=== PATIENT | male | born 1945 | race Caucasian/White ===

== ENCOUNTER 2019-09-24 10:55 | Outpatient (CLI) | payer MEDICARE, OTHER ==
[2019-09-24 11:18] LABS: BASOPHILS # (AUTO) 0.1 10^3/uL (0.0-0.1); EOSINOPHILS # (AUTO) 0.5 10^3/uL (0.0-0.7); EOSINOPHILS % (AUTO) 4.6 %; LYMPHOCYTES # (AUTO) 2.3 10^3/uL (1.5-3.5); MEAN CORPUSCULAR HGB CONC 32.1 g/dL (32.0-36.0); MEAN CORPUSCULAR VOLUME 93.4 fL (80.0-94.0); MEAN PLATELET VOLUME 8.6 fL (7.4-11.4); MONOCYTES # (AUTO) 0.8 10^3/uL (0.0-1.0); MONOCYTES % (AUTO) 8.3 %; NEUTROPHILS # (AUTO) 6.3 10^3/uL (1.5-6.6); NEUTROPHILS % (AUTO) 62.7 %; PLT - PLATELET COUNT 301 10^3/uL (130-450); RED BLOOD COUNT 5.33 10^6/uL (4.70-6.10); RED CELL DISTRIBUTION WIDTH 12.8 % (12.0-15.0)
[2019-09-24 11:29] LABS: ALBUMIN 4.2 g/dL (3.2-5.5); ALBUMIN/GLOBULIN RATIO 1.4 (1.0-2.2); BILIRUBIN,TOTAL 0.9 mg/dL (0.2-1.0); CALCIUM 9.3 mg/dL (8.5-10.3); CREATININE 0.9 mg/dL (0.6-1.2); TOTAL PROTEIN 7.3 g/dL (6.7-8.2)
[2019-09-24 11:39] LABS: HB2 TOTAL 15.9 g/dL; HEMOGLOBIN A1C 0.85 g/dL
== END 2019-09-24 10:56 | disposition home or self-care (01) ==
LOC: LAB 10:55
PROVIDERS: ATTEND Family Medicine
DX: J44.9 Chronic obstructive pulmonary disease, unspecified (principal); E78.5 Hyperlipidemia, unspecified; I10 Essential (primary) hypertension; R73.09 Other abnormal glucose
CPT/HCPCS: 36415; 80053; 83036; 85025

== ENCOUNTER 2020-05-13 08:12 | Outpatient (CLI) | payer MEDICARE, OTHER ==
[2020-05-13 09:41] VITALS: BP 128/86
--- NOTE | 2020-05-13 09:41 | SLEEP CARE CONSULTATION ---
Information from patient questionnaire entered by Yeison Peters. I have reviewed and concur with the information entered by Yeison Peters. This document represents the service I personally performed and the decisions made by me, Ayana Saeed ARNP. History of Present Illness Service Date and Time: 05/13/2020 08 Reason for Visit: New patient, sleep apnea on CPAP therapy Chief Complaint: reports: Snoring Date of Onset: 2004 Usual bedtime: [id number] Time it takes to fall asleep: 5-10 min Snores at night: Yes Observed to quit breathing while asleep: Yes Sleeps alone due to snoring: Yes (sometimes) Number of times waking at night: once Reasons for waking at night: reports: Bathroom. denies: Choking, Snoring, Gasping for air Toss, Turn, or Twitch while sleeping: No Recalls having dreams: No Usually gets out of bed at: 0500 Feels refreshed in the morning: Yes Morning headache: No Sleepy or fatigued during the day: Yes Ever fallen asleep while driving: No Takes day naps: Yes Dreams during day naps: No Prior sleep studies: Yes Year and Where: 2005 in [place] (Dr. Finney) Additional HPI information: LIBRA VILLEDA presents with a history of obstructive sleep apnea-hypopnea syndrome and came in today with his spouse for establishment of care. He was last set up with a CPAP machine in 2005 and he still has the same machine. I was unable to get any compliance information off of his machine. He states his machine is set at 11 cm H2O. He states recently the pressure has felt like it is too low. His also states that he now is snoring while using the machine. She states it starts after he gets up to the bathroom (most often about 3-4 AM, sometimes about midnight) and it is a constant sounding snore. She states it is not like an intake and exhale of breathing, just a single tone snore sound. He makes sure his mask is on well with a good seal and does not know where the sound is coming from, he denies mask leaking. Sometimes it is so loud his has to leave the room to be able to sleep. He has a history of emphysema, hypertension and is borderline diabetic. He is a daily smoker. Patient did not have a copy of his previous sleep study to verify his diagnosis. - Parasomnia Symptoms Ever been unable to move upon waking from sleep: No Walks in sleep: No Talks in sleep: No Ever acted out dreams in sleep: No Ever felt weak in the knees when startled or emotional: No Bothered by creepy, crawly, restless sensations in legs: No Problems with memory or concentration: No CPAP Compliance Data Compliance data discussion: He is getting supplies from [facility] without problems. He is using a nasal pillows mask. He last changed the cushion 2 weeks ago. He has a backup mask if needed. I was able to see that his pressure is set on 11 cm H2O when examining the machine. Subjective Patient concerns: denies: aerophagia, mask discomfort, air blowing in eyes, mask leak noise (occasional noise that reduces with adjusting mask), condensation in mask/hose (occasional condensation in nasal pillows), nasal congestion, dry mouth, nose, throat, epistaxis, other Observed to snore while using device: Yes (usually about 3-4 AM when coming back to bed) Current pressure setting perceived as: too low On therapy, patient: reports: sleeping better, awakening more refreshed, being more awake and alert during the day, more rested overall. denies: drowsiness while driving Initial Powell Sleepiness Scale score: 10 (in 2019) Past Medical History Past Medical History: reports: Hypertension, Arthritis, Coronary Heart Disease (He has had 2 silent heart attacks ), Emphysema. denies: Claustrophobia, Congestive Heart Failure, Diabetes (borderline diabetes), Arrythmia, Hypothyroidism, Anemia, Anxiety, Impotence, Depression, Mood disorder, GERD, Attention deficit Social History The patient's occupation is retired. Patient is and lives in [place]. Have you smoked in the past 12 months: Yes Cigarettes per day (20/pack): 20 Years of smokin Quit date: N/A Smoking Pack Years: 60.0 Alcohol use: No Caffeine use: Yes Caffeine amount and frequency: 3-4 cups Family History Family history of sleep disordered breathing: Yes (Daughter, brother) Family Hx Sleep Apnea: Sibling: Snoring, Sleep apnea - Treated Allergies and Home Medications Drug allergies reviewed: Yes (NKDA) Home medication list reviewed: Yes Allergy and home medication list: Metformin HCL Spironolactone Losartan atorvastatin Niacin Roel Aspirin cetirizine mucinex max strength fluconazole Review of Systems Weight gain over past 5 years: 8 Weight loss over past 5 years: 5 Cardiovascular: reports: high blood pressure. denies: palpitations, chest pain, irregular heart rate or pulse, leg or foot swelling Respiratory: reports: shortness of breath, wheeze, sputum production, chronic cough Gastrointestinal: reports: diarrhea (occasional). denies: heartburn, difficulty swallowing Urinary: reports: frequency. denies: impotence Neurological: reports: gait or balance problems. denies: headaches, seizure, head trauma, speech dysfunction, fainting or unconsciousness Psychiatric: denies: Attention Deficit Hyperactivity, anxiety, depression, mood disorder, claustrophobia Ear/Nose/Throat: reports: nasal congestion, sinus problems. denies: nose bleeds, dry mouth/throat, injury to nose, tonsillectomy, wisdom teeth removed Endocrine: reports: sluggishness, too hot or cold (sometimes). denies: thyroid disease Musculoskeletal: reports: joint pain, back pain Immunologic: reports: allergies to food or environment (seasonal allergies) Physical Exam Blood Pressure: 128/86 Cuff size: long Heart Rate: 93 O2 Saturation: 92 Height: 5 ft 9 in Weight: 177 lb Body Mass Index: 26.1 BMI Classification: Overweight Neck circumference: 16.65 (inches) HEENT: No craniofacial malformation Nostrils: partially obstructed Turbinates: normal Septum: midline Mouth and throat: narrow oropharynx Soft palate: normal Hard palate: arched Uvula: normal Uvula visualization: 25% Mallampati Class III Tongue: normal in size Tonsils: 1+ Chin and jaw: normal size and position Neck: normal w/o lymphadenopathy or thyromegaly Heart: regular rate and rhythm Lungs: clear bilaterally Impression and Plan 1. Obstructive Sleep Apnea-Hypopnea Syndrome, unknown, with unknown treatment compliance and unknown apnea control. On CPAP therapy, patient feels there is improved sleep quality and feels more rested overall. We are attempting to obtain a copy of his previous study to verify his diagnosis and severity. If unable to obtain may need to repeat a sleep study for verification. We will try to get information from his machine, but may have to wait until able to replace machine to obtain compliance information. The patients CPAP is over 5 years old and of reasonable use. Thus, the CPAP will be updated once able to verify his diagnosis and severity. Compliance guidelines for new device and follow up discussed. Patient feels his pressure is too low and he is apparently snoring while using the machine. He states that his CPAP pressure has been 11 cm H2O since 2005, no adjustments have been made. Patient left his machine with us and I will see if we can increase his CPAP pressure to 12 cm H2O on his old machine and he will pick it back up later today. If unable to adjust pressure, we will just have to wait until able to update his machine to do this. Patient's apnea severity and rationale for treatment to reduce apnea, improve sleep quality and reduce cardiovascular and cerebrovascular events was reviewed. I also reviewed the benefit of consistent device use of CPAP for hypertension, cardiac disease, and borderline diabetes. Change CPAP pressure at 12 cm H2O. Notify me if snoring with the mask or feeling that the pressure is too much or too little. Attempt to lose weight. A repeat polysomnography study will be ordered if unable to obtain copy of previous study. We will plan on replacing old machine if able to obtain verification of diagnosis and severity Return for follow-up in 1-2 months, or sooner if concerns arise. Visit Type: In Office Time Spent with Patient (minutes): 40 Provider Statement: I spent 100% of the Face to Face Visit with the patient with greater than 50% spent counseling the patient and coordination of care.
== END 2020-05-13 08:13 | disposition home or self-care (01) ==
LOC: SC 08:12
PROVIDERS: ATTEND Nurse Practitioner Family
DX: G47.33 Obstructive sleep apnea (adult) (pediatric) (principal); E66.3 Overweight; Z68.26 Body mass index [BMI] 26.0-26.9, adult
CPT/HCPCS: 99204; G0463; 99212

== ENCOUNTER 2020-06-24 08:00 | Outpatient (CLI) | payer MEDICARE, OTHER ==
[2020-06-24 11:36] LABS: HEMOGLOBIN A1c% 6.8 % (4.27-6.07)
[2020-06-24 11:37] LABS: ALBUMIN/GLOBULIN RATIO 1.3 (1.0-2.2); ALKALINE PHOSPHATASE 61 IU/L (42-121); ALT ALANINE AMINOTRANSFERASE 16 IU/L (10-60); AST ASPARTATE AMINOTRANSFERASE 23 IU/L (10-42); BILIRUBIN,TOTAL 0.9 mg/dL (0.2-1.0); BUN - BLOOD UREA NITROGEN 15 mg/dL (6-20); CALCIUM 9.6 mg/dL (8.5-10.3); CARBON DIOXIDE - CO2 28 mmol/L (21-32); CHLORIDE 91 mmol/L (101-111); CHOL/HDL RATIO 2.1 (<5.0); CHOLESTEROL 98 mg/dL; CREATININE 0.9 mg/dL (0.6-1.2); GLUCOSE 132 mg/dL (70-100); HDL CHOLESTEROL 47 mg/dL; LDL CHOLESTEROL,CALCULATED 37 mg/dL; LDL/HDL RATIO 0.8 (<3.6); SODIUM 132 mmol/L (135-145); TOTAL PROTEIN 7.2 g/dL (6.7-8.2); VLDL CHOLESTEROL 14 mg/dL
[2020-06-24 11:44] LABS: BASOPHILS # (AUTO) 0.1 10^3/uL (0.0-0.1); BASOPHILS % (AUTO) 1.1 %; EOSINOPHILS # (AUTO) 0.4 10^3/uL (0.0-0.7); EOSINOPHILS % (AUTO) 4.5 %; HGB - HEMOGLOBIN 16.3 g/dL (14.0-18.0); LYMPHOCYTES # (AUTO) 1.9 10^3/uL (1.5-3.5); LYMPHOCYTES % (AUTO) 21.7 %; MEAN CORPUSCULAR HEMOGLOBIN 31.7 pg (27.0-31.0); MEAN CORPUSCULAR HGB CONC 32.6 g/dL (32.0-36.0); MEAN CORPUSCULAR VOLUME 97.3 fL (80.0-94.0); MEAN PLATELET VOLUME 9.1 fL (7.4-11.4); MONOCYTES # (AUTO) 0.9 10^3/uL (0.0-1.0); MONOCYTES % (AUTO) 10.5 %; NEUTROPHILS # (AUTO) 5.5 10^3/uL (1.5-6.6); NEUTROPHILS % (AUTO) 61.7 %; PLT - PLATELET COUNT 308 10^3/uL (130-450); RED BLOOD COUNT 5.14 10^6/uL (4.70-6.10); RED CELL DISTRIBUTION WIDTH 12.8 % (12.0-15.0); WHITE BLOOD COUNT 8.9 x10^3/uL (4.8-10.8)
== END 2020-06-24 23:59 | disposition home or self-care (01) ==
LOC: LAB.WCP 08:00
PROVIDERS: ATTEND Family Medicine
DX: J44.9 Chronic obstructive pulmonary disease, unspecified (principal); R73.09 Other abnormal glucose; E78.5 Hyperlipidemia, unspecified; I10 Essential (primary) hypertension
CPT/HCPCS: 36415; 80053; 80061; 83036; 83721; 84443; 85025

== ENCOUNTER 2020-07-11 08:08 | Outpatient (CLI) | payer MEDICARE, OTHER ==
--- NOTE | 2020-07-11 08:26 | SLEEP CARE CONSULTATION ---
Information from patient questionnaire entered by Paula Bello. I have reviewed and concur with the information entered by Paula Bello. This document represents the service I personally performed and the decisions made by me, Ayana Saeed ARNP. History of Present Illness Service Date and Time: 07/11/2020 0808 Previous diagnosis: Severe, Obstructive Sleep Apnea-Hypopnea Syndrome AHI: 49 (in 2005) Reason for follow up: other (2 month with pressure change) Equipment type: CPAP Equipment obtained from: [facility] (difficulty getting filters for new machine) Mask style: Nasal pillows Backup mask available: Yes (other mask) Last cushion change: 2 weeks ago Prior sleep studies: Yes Year and Where: 2005 - in [facility] additional information: LIBRA VILLEDA was diagnosed to have severe, AHI 49, obstructive sleep apnea-hypopnea syndrome and returned today for CPAP therapy two month pressure change follow-up. CPAP Compliance Data - Data Reviewed with Patient Average duration of nightly device use: 7 hr 11 min Compliance rate %: 92 (60 days) Current pressure setting (cmH2O): 12 Humidity settin Average residual AHI: 0.3 Subjective Missed days of use due to: reports: other (change to new machine) Patient concerns: denies: aerophagia, mask discomfort, air blowing in eyes, mask leak noise, condensation in mask/hose, nasal congestion, dry mouth, nose, throat, epistaxis, other Observed to snore while using device: No Current pressure setting perceived as: comfortable On therapy, patient: reports: sleeping better, awakening more refreshed, being more awake and alert during the day, more rested overall. denies: drowsiness while driving Initial Rhodelia Sleepiness Scale score: 10 (in 2019) Current Rhodelia Sleepiness Scale score: 14 Allergies and Home Medications Drug allergies reviewed: Yes (NKDA) Home medication list reviewed: Yes (no new medications) Review of Systems Review of systems same as previous: Yes (no changes) Physical Exam Heart Rate: 85 O2 Saturation: 97 Height: 5 ft 10 in Weight: 170 lb Body Mass Index: 24.3 BMI Classification: Healthy weight Impression and Plan 1. Obstructive Sleep Apnea-Hypopnea Syndrome, severe, with good treatment compliance and great apnea control. On CPAP therapy, the patient has better sleep quality and is more rested overall. He is really liking his new machine and has no complaints. Patient's apnea severity and rationale for treatment to reduce apnea, improve sleep quality and reduce cardiovascular and cerebrovascular events was reviewed. I also reviewed the benefit of consistent device use of CPAP for hypertension and cardiac disease. * Continue auto CPAP pressure at 12 cmH2O * Notify me if snoring with mask or feeling that the pressure is too much or too little * Call this office if any problems using CPAP * Return for follow up in 1 year, or sooner if concerns arise Counseling Topics: Spare mask Visit Type: In Office Time Spent with Patient (minutes): 16 Provider Statement: I spent 100% of the Face to Face Visit with the patient with greater than 50% spent counseling the patient and coordination of care.
== END 2020-07-11 08:09 | disposition home or self-care (01) ==
LOC: SC 08:08
PROVIDERS: ATTEND Nurse Practitioner Family
DX: G47.33 Obstructive sleep apnea (adult) (pediatric) (principal)
CPT/HCPCS: 99213; G0463; 99212

== ENCOUNTER 2020-12-27 08:00 | Outpatient (CLI) | payer MEDICARE, OTHER ==
[2020-12-27 12:46] LABS: ESTIMATED AVERAGE GLUCOSE 143 mg/dL (70-100); HEMOGLOBIN A1c% 6.6 % (4.27-6.07)
[2020-12-27 13:10] LABS: CREATININE,URINE 94.8 mg/dL; MICROALBUM/CREATININE RATIO,UR 2.1 ug/mg (<30.0); MICROALBUMIN,URINE 0.2 mg/dL (0-300.0)
[2020-12-27 13:14] LABS: CALCIUM 9.4 mg/dL (8.5-10.3); CREATININE 0.9 mg/dL (0.6-1.2); POTASSIUM 4.6 mmol/L (3.5-5.0)
== END 2020-12-27 23:59 | disposition home or self-care (01) ==
LOC: LAB.WCP 08:00
PROVIDERS: ATTEND Family Medicine
DX: G47.39 Other sleep apnea (principal); J44.9 Chronic obstructive pulmonary disease, unspecified; R73.03 Prediabetes; I10 Essential (primary) hypertension; E87.5 Hyperkalemia
CPT/HCPCS: 36415; 80048; 82043; 82570; 83036

== ENCOUNTER 2021-06-26 08:00 | Outpatient (CLI) | payer MEDICARE, OTHER ==
[2021-06-26 11:47] LABS: ESTIMATED AVERAGE GLUCOSE 151 mg/dL (70-100); HEMOGLOBIN A1c% 6.9 % (4.27-6.07)
[2021-06-26 12:11] LABS: ALBUMIN 4.3 g/dL (3.2-5.5); ALBUMIN/GLOBULIN RATIO 1.5 (1.0-2.2); ALKALINE PHOSPHATASE 64 IU/L (42-121); ALT ALANINE AMINOTRANSFERASE 15 IU/L (10-60); AST ASPARTATE AMINOTRANSFERASE 19 IU/L (10-42); BILIRUBIN,TOTAL 0.9 mg/dL (0.2-1.0); BUN - BLOOD UREA NITROGEN 20 mg/dL (6-20); CALCIUM 9.6 mg/dL (8.5-10.3); CARBON DIOXIDE - CO2 28 mmol/L (21-32); CHLORIDE 94 mmol/L (101-111); CHOL/HDL RATIO 2.2 (<5.0); CHOLESTEROL 104 mg/dL; CREATININE 0.8 mg/dL (0.6-1.2); GFR - MDRD 94 (>89); GLUCOSE 119 mg/dL (70-100); HDL CHOLESTEROL 48 mg/dL; LDL CHOLESTEROL,CALCULATED 43 mg/dL; LDL/HDL RATIO 0.9 (<3.6); POTASSIUM 5.2 mmol/L (3.5-5.0); SODIUM 132 mmol/L (135-145); TOTAL PROTEIN 7.2 g/dL (6.7-8.2); TRIGLYCERIDES 65 mg/dL; VLDL CHOLESTEROL 13 mg/dL
[2021-06-26 13:00] LABS: CREATININE,URINE 48.9 mg/dL
[2021-06-26 13:01] LABS: MICROALBUMIN,URINE < 0.2 mg/dL (0-300.0)
== END 2021-06-26 23:59 | disposition home or self-care (01) ==
LOC: LAB.WCP 08:00
PROVIDERS: ATTEND Internal Medicine
DX: E78.5 Hyperlipidemia, unspecified (principal); R73.09 Other abnormal glucose
CPT/HCPCS: 36415; 80053; 80061; 82043; 82570; 83036; 83721

== ENCOUNTER 2021-12-21 07:08 | Outpatient (CLI) | payer MEDICARE, OTHER ==
[2021-12-21 13:13] LABS: BASOPHILS # (AUTO) 0.1 10^3/uL (0.0-0.1); BASOPHILS % (AUTO) 1.2 %; EOSINOPHILS # (AUTO) 0.4 10^3/uL (0.0-0.7); EOSINOPHILS % (AUTO) 4.4 %; HCT - HEMATOCRIT 51.2 % (42.0-52.0); HGB - HEMOGLOBIN 16.8 g/dL (14.0-18.0); LYMPHOCYTES # (AUTO) 1.8 10^3/uL (1.5-3.5); LYMPHOCYTES % (AUTO) 19.7 %; MEAN CORPUSCULAR HEMOGLOBIN 31.1 pg (27.0-31.0); MEAN CORPUSCULAR HGB CONC 32.8 g/dL (32.0-36.0); MEAN CORPUSCULAR VOLUME 94.6 fL (80.0-94.0); MEAN PLATELET VOLUME 9.7 fL (7.4-11.4); MONOCYTES # (AUTO) 0.9 10^3/uL (0.0-1.0); MONOCYTES % (AUTO) 9.8 %; NEUTROPHILS % (AUTO) 64.5 %; PLT - PLATELET COUNT 298 10^3/uL (130-450); RED BLOOD COUNT 5.41 10^6/uL (4.70-6.10); RED CELL DISTRIBUTION WIDTH 13.3 % (12.0-15.0); WHITE BLOOD COUNT 9.3 x10^3/uL (4.8-10.8)
[2021-12-21 13:49] LABS: CALCIUM 9.5 mg/dL (8.5-10.3); POTASSIUM 5.1 mmol/L (3.5-5.0)
[2021-12-21 14:48] LABS: ESTIMATED AVERAGE GLUCOSE 154 mg/dL (70-100)
== END 2021-12-21 07:09 | disposition home or self-care (01) ==
LOC: LAB.N 07:08
PROVIDERS: ATTEND Family Medicine
DX: E11.9 Type 2 diabetes mellitus without complications (principal); E87.6 Hypokalemia; J42 Unspecified chronic bronchitis; I10 Essential (primary) hypertension
CPT/HCPCS: 36415; 80048; 83036; 85025

== ENCOUNTER 2022-06-21 07:57 | Outpatient (CLI) | payer MEDICARE, OTHER ==
[2022-06-21 12:35] LABS: BASOPHILS # (AUTO) 0.1 10^3/uL (0.0-0.1); BASOPHILS % (AUTO) 0.9 %; EOSINOPHILS # (AUTO) 0.3 10^3/uL (0.0-0.7); EOSINOPHILS % (AUTO) 3.5 %; HCT - HEMATOCRIT 50.6 % (42.0-52.0); HGB - HEMOGLOBIN 16.4 g/dL (14.0-18.0); LYMPHOCYTES # (AUTO) 1.7 10^3/uL (1.5-3.5); LYMPHOCYTES % (AUTO) 17.5 %; MEAN CORPUSCULAR HEMOGLOBIN 30.9 pg (27.0-31.0); MEAN CORPUSCULAR HGB CONC 32.4 g/dL (32.0-36.0); MEAN CORPUSCULAR VOLUME 95.3 fL (80.0-94.0); MEAN PLATELET VOLUME 9.2 fL (7.4-11.4); MONOCYTES # (AUTO) 0.9 10^3/uL (0.0-1.0); MONOCYTES % (AUTO) 9.4 %; NEUTROPHILS # (AUTO) 6.6 10^3/uL (1.5-6.6); NEUTROPHILS % (AUTO) 68.1 %; PLT - PLATELET COUNT 326 10^3/uL (130-450); RED BLOOD COUNT 5.31 10^6/uL (4.70-6.10); RED CELL DISTRIBUTION WIDTH 12.9 % (12.0-15.0); WHITE BLOOD COUNT 9.8 x10^3/uL (4.8-10.8)
[2022-06-21 13:01] LABS: ESTIMATED AVERAGE GLUCOSE 160 mg/dL (70-100); HEMOGLOBIN A1c% 7.2 % (4.27-6.07)
[2022-06-21 13:15] LABS: THYROID STIMULATING HORMONE 1.59 uIU/mL (0.34-5.60)
[2022-06-21 13:18] LABS: ALBUMIN 4.1 g/dL (3.2-5.5); ALBUMIN/GLOBULIN RATIO 1.4 (1.0-2.2); ALKALINE PHOSPHATASE 64 IU/L (42-121); ALT ALANINE AMINOTRANSFERASE 21 IU/L (10-60); AST ASPARTATE AMINOTRANSFERASE 24 IU/L (10-42); BILIRUBIN,TOTAL 0.6 mg/dL (0.2-1.0); BUN - BLOOD UREA NITROGEN 17 mg/dL (6-20); CALCIUM 9.5 mg/dL (8.5-10.3); CARBON DIOXIDE - CO2 30 mmol/L (21-32); CHLORIDE 93 mmol/L (101-111); CHOLESTEROL 93 mg/dL; CREATININE 0.9 mg/dL (0.6-1.2); GFR - MDRD 82 (>89); GLUCOSE 136 mg/dL (70-100); HDL CHOLESTEROL 46 mg/dL; LDL CHOLESTEROL,CALCULATED 38 mg/dL; LDL/HDL RATIO 0.8 (<3.6); POTASSIUM 4.8 mmol/L (3.5-5.0); SODIUM 130 mmol/L (135-145); TOTAL PROTEIN 7.1 g/dL (6.7-8.2); TRIGLYCERIDES 45 mg/dL; VLDL CHOLESTEROL 9 mg/dL
== END 2022-06-21 07:58 | disposition home or self-care (01) ==
LOC: LAB.N 07:57
PROVIDERS: ATTEND Family Medicine
DX: I10 Essential (primary) hypertension (principal); E11.9 Type 2 diabetes mellitus without complications; E87.6 Hypokalemia; J44.9 Chronic obstructive pulmonary disease, unspecified
CPT/HCPCS: 36415; 80053; 80061; 83036; 83721; 84443; 85025

== ENCOUNTER 2022-12-18 07:32 | Outpatient (CLI) | payer MEDICARE, OTHER ==
[2022-12-18 11:58] LABS: BASOPHILS # (AUTO) 0.1 10^3/uL (0.0-0.1); BASOPHILS % (AUTO) 1.2 %; EOSINOPHILS # (AUTO) 0.4 10^3/uL (0.0-0.7); EOSINOPHILS % (AUTO) 4.3 %; HCT - HEMATOCRIT 51.8 % (42.0-52.0); HGB - HEMOGLOBIN 17.1 g/dL (14.0-18.0); LYMPHOCYTES # (AUTO) 1.7 10^3/uL (1.5-3.5); LYMPHOCYTES % (AUTO) 18.2 %; MEAN CORPUSCULAR VOLUME 93.8 fL (80.0-94.0); MEAN PLATELET VOLUME 9.2 fL (7.4-11.4); MONOCYTES # (AUTO) 0.9 10^3/uL (0.0-1.0); MONOCYTES % (AUTO) 9.8 %; NEUTROPHILS # (AUTO) 6.2 10^3/uL (1.5-6.6); PLT - PLATELET COUNT 311 10^3/uL (130-450); RED BLOOD COUNT 5.52 10^6/uL (4.70-6.10); RED CELL DISTRIBUTION WIDTH 12.8 % (12.0-15.0); WHITE BLOOD COUNT 9.4 x10^3/uL (4.8-10.8)
[2022-12-18 12:25] LABS: ESTIMATED AVERAGE GLUCOSE 151 mg/dL (70-100); HEMOGLOBIN A1c% 6.9 % (4.27-6.07)
[2022-12-18 12:26] LABS: THYROID STIMULATING HORMONE 2.22 uIU/mL (0.34-5.60)
[2022-12-18 12:30] LABS: ALBUMIN/GLOBULIN RATIO 1.2 (1.0-2.2); BILIRUBIN,TOTAL 0.7 mg/dL (0.2-1.0); CALCIUM 9.5 mg/dL (8.5-10.3); CREATININE 0.9 mg/dL (0.6-1.2); POTASSIUM 5.1 mmol/L (3.5-5.0); TOTAL PROTEIN 7.4 g/dL (6.7-8.2)
== END 2022-12-18 07:33 | disposition home or self-care (01) ==
LOC: LAB.N 07:32
PROVIDERS: ATTEND Family Medicine
DX: E11.9 Type 2 diabetes mellitus without complications (principal); F17.200 Nicotine dependence, unspecified, uncomplicated; G47.30 Sleep apnea, unspecified; J44.9 Chronic obstructive pulmonary disease, unspecified; I10 Essential (primary) hypertension
CPT/HCPCS: 36415; 80053; 83036; 84443; 85025

== ENCOUNTER 2023-01-10 10:44 | Outpatient (CLI) | payer MEDICARE, OTHER ==
--- NOTE | 2023-01-10 14:38 | CT Report ---
PROCEDURE: Low Dose Lung Cancer Screen INDICATIONS: NICOTINE DEPENDENCE TECHNIQUE: Noncontrast low-dose axial images were acquired from the pulmonary apices to the posterior costophren ic angles. Multiplanar MIP reformats were then reconstructed. For radiation dose reduction, the follo wing was used: automated exposure control, adjustment of mA and/or kV according to patient size. COMPARISON: None. FINDINGS: Image quality: Excellent. Prior cancer history: Unknown Lungs and pleura: No pleural effusions. No pneumothorax. No suspicious pulmonary nodules which requi re follow up. There is moderate upper lobe predominant pulmonary emphysema with mild subpleural retic ular opacities involving all lobes of the bilateral hemithoraces. Findings are compatible with early pleural scarring. No fibrosis identified . No septal thickening or nodularity. Mediastinum: Heart size is normal. No pericardial effusions. No mediastinal adenopathy by size criter ia. No large vessel abnormality. Moderate atherosclerotic calcifications of the coronary arteries and thoracic aorta. Chest wall and lower neck: Thyroid is unremarkable. No axillary or supraclavicular adenopathy by size . Bones: No aggressive osseous abnormality. Multilevel spondylosis. No acute compression fracture. Upper Abdomen: Visualized upper abdominal solid and hollow organs appear unremarkable. Aneurysmal dil atation of the proximal abdominal aorta measuring 5.4 cm in diameter. IMPRESSION: Chest without acute cardiopulmonary abnormalities. No suspicious pulmonary nodules. Moderate upper lobe predominant pulmonary emphysema. Lung RAD: 1 - Negative. Recommendation: Continue annual screening in 12 Months with LDCT Non-Lung Significant Findings: Aortic Aneurysm. Visualized portions of the proximal abdominal aorta m easures up to 5.4 cm in size. There is also ectasia of the ascending thoracic aorta measuring approxi mately 4.3 cm in diameter. Recommend clinical and imaging surveillance. Moderate atherosclerotic vascular calcifications. Reviewed by: Sea Ford MD on 01/10/2023 2:36 PM PDT Approved by: Sea Ford MD on 01/10/2023 2:36 PM PDT Station ID: [id number]
== END 2023-01-10 10:45 | disposition home or self-care (01) ==
LOC: DI 10:44
PROVIDERS: ATTEND Family Medicine
DX: Z12.2 Encounter for screening for malignant neoplasm of respiratory organs (principal); J43.9 Emphysema, unspecified; F17.210 Nicotine dependence, cigarettes, uncomplicated

== ENCOUNTER 2023-01-29 07:43 | Outpatient (CLI) | payer MEDICARE, OTHER ==
--- NOTE | 2023-01-29 17:07 | Ultrasound Report ---
PROCEDURE: Retroperitoneal Limited INDICATIONS: AAA TECHNIQUE: Real-time scanning was performed of the retroperitoneal organs, with image documentation. COMPARISON: None. FINDINGS: The proximal mid and distal aorta measure 3.0 x 2.9 cm, 2.0 x 2.5 cm, and 5.8 x 5.6 cm within the pro ximal, mid and distal portions respectively. The right common iliac artery measures 1.2 x 1.3 cm. The left common iliac artery measures 1.3 x 1.0 cm. IMPRESSION: Distal aortic aneurysmal dilation. No priors are available for comparison. Mildly prominent proximal aorta. No priors are available for comparison. Reviewed by: Tonia Herrera MD on 01/29/2023 5:06 PM PDT Approved by: Tonia Herrera MD on 01/29/2023 5:06 PM PDT Station ID: [id number]
== END 2023-01-29 07:44 | disposition home or self-care (01) ==
LOC: DI 07:43
PROVIDERS: ATTEND Family Medicine
DX: I71.40 Abdominal aortic aneurysm, without rupture, unspecified (principal)

== ENCOUNTER 2023-07-03 14:58 | Outpatient (CLI) | payer MEDICARE, OTHER ==
--- NOTE | 2023-07-03 16:38 | Ultrasound Report ---
PROCEDURE: Retroperitoneal INDICATIONS: RENAL MASS TECHNIQUE: Real-time scanning was performed of the retroperitoneal organs, with image documentation. COMPARISON: CT 01/10/2023. FINDINGS: Kidneys: Kidneys are normal in size. Right kidney measures 11.9 cm long; left kidney measures 12.3 cm long. Right renal cortical thickness is 1.3 cm; left renal cortical thickness is 1.8 cm. Right si mple cysts. No solid masses, hydronephrosis, or nephrolithiasis. Bladder: Pre-void bladder volume is 228 mL. Post-void residual is 8 mL. Pre-void images demonstrat e no intraluminal masses or stones. On pre-void images, bilateral ureteral jets are noted with color Doppler interrogation. (Of note, ureteral jets may not be detectable in up to 25% of cases due to i nsufficient differences in specific gravity between ureteral and bladder urine). Miscellaneous: No free abdominal fluid. IMPRESSION: Right renal simple cysts. No solid renal masses visualized. Reviewed by: Triny Hubbard MD on 07/03/2023 4:37 PM PST Approved by: Triny Hubbard MD on 07/03/2023 4:37 PM PST Station ID: [id number]
== END 2023-07-03 14:59 | disposition home or self-care (01) ==
LOC: DI 14:58
PROVIDERS: ATTEND Family Medicine
DX: N28.1 Cyst of kidney, acquired (principal)

== ENCOUNTER 2023-10-31 08:30 | Outpatient (CLI) | payer MEDICARE, OTHER ==
[2023-10-31 11:57] LABS: BASOPHILS # (AUTO) 0.1 10^3/uL (0.0-0.1); EOSINOPHILS # (AUTO) 0.4 10^3/uL (0.0-0.7); EOSINOPHILS % (AUTO) 3.6 %; HCT - HEMATOCRIT 48.4 % (42.0-52.0); LYMPHOCYTES # (AUTO) 1.4 10^3/uL (1.5-3.5); LYMPHOCYTES % (AUTO) 14.2 %; MEAN CORPUSCULAR HEMOGLOBIN 30.6 pg (27.0-31.0); MEAN CORPUSCULAR HGB CONC 33.1 g/dL (32.0-36.0); MEAN CORPUSCULAR VOLUME 92.5 fL (80.0-94.0); MEAN PLATELET VOLUME 9.1 fL (7.4-11.4); MONOCYTES # (AUTO) 0.9 10^3/uL (0.0-1.0); MONOCYTES % (AUTO) 8.5 %; NEUTROPHILS # (AUTO) 7.2 10^3/uL (1.5-6.6); NEUTROPHILS % (AUTO) 72.4 %; PLT - PLATELET COUNT 292 10^3/uL (130-450); RED BLOOD COUNT 5.23 10^6/uL (4.70-6.10); RED CELL DISTRIBUTION WIDTH 13.1 % (12.0-15.0)
[2023-10-31 12:39] LABS: ALBUMIN 4.5 g/dL (3.2-5.5); ALBUMIN/GLOBULIN RATIO 1.9 (1.0-2.2); BILIRUBIN,TOTAL 0.7 mg/dL (0.2-1.0); CALCIUM 9.8 mg/dL (8.5-10.3); CREATININE 0.8 mg/dL (0.6-1.3); POTASSIUM 4.6 mmol/L (3.5-4.5); TOTAL PROTEIN 6.9 g/dL (6.4-8.9)
== END 2023-10-31 08:45 | disposition home or self-care (01) ==
LOC: LAB.N 08:30
PROVIDERS: ATTEND Specialist
DX: L30.9 Dermatitis, unspecified (principal)
CPT/HCPCS: 36415; 80053; 85025

== ENCOUNTER 2023-12-19 07:26 | Outpatient (CLI) | payer MEDICARE, OTHER ==
[2023-12-19 12:09] LABS: ESTIMATED AVERAGE GLUCOSE 157 mg/dL (70-100); HEMOGLOBIN A1c% 7.1 % (4.27-6.07)
[2023-12-19 12:36] LABS: BASOPHILS # (AUTO) 0.1 10^3/uL (0.0-0.1); BASOPHILS % (AUTO) 1.2 %; EOSINOPHILS # (AUTO) 0.6 10^3/uL (0.0-0.7); EOSINOPHILS % (AUTO) 6.3 %; HCT - HEMATOCRIT 50.6 % (42.0-52.0); HGB - HEMOGLOBIN 16.1 g/dL (14.0-18.0); LYMPHOCYTES # (AUTO) 1.6 10^3/uL (1.5-3.5); LYMPHOCYTES % (AUTO) 17.2 %; MEAN CORPUSCULAR HEMOGLOBIN 30.3 pg (27.0-31.0); MEAN CORPUSCULAR HGB CONC 31.8 g/dL (32.0-36.0); MEAN CORPUSCULAR VOLUME 95.3 fL (80.0-94.0); MEAN PLATELET VOLUME 9.4 fL (7.4-11.4); MONOCYTES # (AUTO) 0.9 10^3/uL (0.0-1.0); MONOCYTES % (AUTO) 9.6 %; NEUTROPHILS % (AUTO) 65.4 %; PLT - PLATELET COUNT 288 10^3/uL (130-450); RED BLOOD COUNT 5.31 10^6/uL (4.70-6.10); RED CELL DISTRIBUTION WIDTH 13.4 % (12.0-15.0); WHITE BLOOD COUNT 9.2 x10^3/uL (4.8-10.8)
[2023-12-19 12:47] LABS: ALBUMIN 4.3 g/dL (3.2-5.5); ALBUMIN/GLOBULIN RATIO 1.6 (1.0-2.2); ALKALINE PHOSPHATASE 60 IU/L (42-121); ALT ALANINE AMINOTRANSFERASE 19 IU/L (10-60); AST ASPARTATE AMINOTRANSFERASE 22 IU/L (10-42); BILIRUBIN,TOTAL 0.5 mg/dL (0.2-1.0); BUN - BLOOD UREA NITROGEN 17 mg/dL (6-20); CARBON DIOXIDE - CO2 31 mmol/L (21-32); CHLORIDE 94 mmol/L (101-111); CHOL/HDL RATIO 1.7 (<5.0); CHOLESTEROL 93 mg/dL; CREATININE 0.9 mg/dL (0.6-1.3); GFR - MDRD 81 (>89); GLUCOSE 141 mg/dL (74-104); HDL CHOLESTEROL 55 mg/dL; LDL CHOLESTEROL,CALCULATED 26 mg/dL; LDL/HDL RATIO 0.5 (<3.6); POTASSIUM 4.9 mmol/L (3.5-4.5); SODIUM 130 mmol/L (135-145); TRIGLYCERIDES 60 mg/dL (48-352); VLDL CHOLESTEROL 12 mg/dL
[2023-12-19 13:05] LABS: THYROID STIMULATING HORMONE 1.83 uIU/mL (0.34-5.60)
== END 2023-12-19 07:27 | disposition home or self-care (01) ==
LOC: LAB.N 07:26
PROVIDERS: ATTEND Family Medicine
DX: I10 Essential (primary) hypertension (principal); N28.89 Other specified disorders of kidney and ureter; I71.9 Aortic aneurysm of unspecified site, without rupture; E87.1 Hypo-osmolality and hyponatremia; E78.5 Hyperlipidemia, unspecified; J44.9 Chronic obstructive pulmonary disease, unspecified; R73.03 Prediabetes; F17.200 Nicotine dependence, unspecified, uncomplicated; Z71.6 Tobacco abuse counseling; E87.5 Hyperkalemia
CPT/HCPCS: 36415; 80053; 80061; 83036; 83721; 84443; 85025

== ENCOUNTER 2024-03-16 14:56 | Inpatient (IN) | payer MEDICARE, OTHER ==
--- NOTE | 2024-03-16 15:43 | ED Physician Documentation ---
History of Present Illness - Stated complaint Stated Complaint: BILAT LEG SWELLING, SOA - Chief complaint Chief Complaint: Cardiac - History obtained from History obtained from: Patient, Family - History of Present Illness Timing: Today Pain level max: 0 Pain level now: 0 - Additonal information Additional information: 78 year old male with a history of COPD, presents with dyspnea x 3 weeks. Still smokes. Used his inhaler today without relief. States his legs have been swollen as well. No fevers. No changes in his cough. No history of CHF. Patient does use inhalers at home but does not have a nebulizer. No cardiac history. Patient is DNR. Has a history of sleep apnea and uses CPAP at home. Review of Systems Constitutional: denies: Fever, Chills GI: denies: Vomiting, Diarrhea Skin: denies: Rash Musculoskeletal: denies: Neck pain, Back pain, Extremity pain Neurologic: denies: Headache PD PAST MEDICAL HISTORY - Past Medical History Past Medical History: Yes Cardiovascular: Hypertension Respiratory: CPAP use GI: None : None Psych: None Musculoskeletal: None Other Past Medical History: AAA 6cm - Past Surgical History Past Surgical History: Yes General: Hiatal hernia repair - Present Medications Home Medications: Ambulatory Orders Medication Instructions Recorded Confirmed Acetaminophen [Acetaminophen Extra 1 tab PO DAILY 03/16/24 03/16/24 Strength] Albuterol Oral Soln [Ventolin] 1 inh INH DAILY 03/16/24 03/16/24 Aspirin [Rena Lara Aspirin] 1 tab PO DAILY 03/16/24 03/16/24 Atorvastatin [Lipitor] 1 tab PO BID 03/16/24 03/16/24 Losartan Potassium 1 tab PO DAILY 03/16/24 03/16/24 Minocycline HCl 1 cap PO BID 03/16/24 03/16/24 Niacin [Niaspan] 1 tab PO DAILY 03/16/24 03/16/24 Spironolactone [Aldactone] 1 tab PO DAILY 03/16/24 03/16/24 Triamcinolone 0.1% Cream [Kenalog 1 applic TOP DAILY 03/16/24 03/16/24 0.1% Cream] metFORMIN [Glucophage] 1 tab PO BID 03/16/24 03/16/24 - Allergies Allergies/Adverse Reactions: Allergies Allergy/AdvReac Type Severity Reaction Status Date / Time No Known Drug Allergies Allergy Verified 03/16/24 15:21 - Social History Does the pt smoke?: Yes Smoking Status: Current every day smoker Does the pt drink ETOH?: No Does the pt have substance abuse?: No - Immunizations Immunizations are current?: Yes - POLST Patient has POLST: Yes PD ED PE NORMAL - Vitals Vital signs reviewed: Yes - General General: Alert and oriented X 3 - HEENT HEENT: PERRL, Moist mucous membranes - Neck Neck: Supple, no meningeal sign - Cardiac Cardiac: RRR, Strong equal pulses - Respiratory Respiratory: Other (Diffuse wheezing bilaterally, diminished breath sounds bilaterally, mild respiratory distress.) - Abdomen Abdomen: Soft, Non tender, Non distended - Derm Derm: Warm and dry - Extremities Extremities: No calf tenderness / cord, Other (2+ pitting BLE edema) - Neuro Neuro: Alert and oriented X 3 - Psych Psych: Normal mood, Normal affect Results - Vitals Vitals: Vital Signs - 24 hr 03/16/24 03/16/24 03/16/24 15:13 15:48 15:57 Temperature 36.2 C L 36.5 C Heart Rate 47 L 112 H Respiratory 22 24 Rate Blood Pressure 139/89 H 158/101 H Blood Pressure 131/110 H [Right] O2 Saturation 89 L 88 L If not protocol : Oxygen Flow, liters/minute 03/16/24 03/16/24 03/16/24 16:04 16:25 16:34 Temperature Heart Rate 112 H 98 110 H Respiratory 22 23 22 Rate Blood Pressure 131/110 H 132/112 H Blood Pressure [Right] O2 Saturation 92 92 If not protocol 1 1 1 : Oxygen Flow, liters/minute Oxygen O2 Source Nasal cannula Oxygen Flow Rate 1 - EKG (time done) 1526 EKG releavant findings:: EKG personally interpreted by author of this note. Relevant findings are: Rate: Rate (enter#) (112) Rhythm: Sinus tachycardia [place]: LAD Intervals: Normal MA, Wide QRS QRS: LVH - Labs Labs: Laboratory Tests 03/16/24 03/16/24 03/16/24 15:45 15:45 15:45 WBC 10.8 RBC 4.86 Hgb 15.1 Hct 45.1 MCV 92.8 MCH 31.1 H MCHC 33.5 RDW 13.0 Plt Count 264 MPV 8.9 Neut # (Auto) 8.4 H Lymph # (Auto) 0.7 L [place] # (Auto) 1.1 H Eos # (Auto) 0.5 Baso # (Auto) 0.1 Absolute Nucleated RBC 0.00 Nucleated RBC % 0.0 Sodium 128 L Potassium 4.4 Chloride 90 L Carbon Dioxide 30 Anion Gap 8.0 BUN 17 Creatinine 0.7 Estimated GFR (MDRD) 109 Glucose 167 H Calcium 9.7 Total Bilirubin 0.8 AST 48 H ALT 76 H Alkaline Phosphatase 83 Troponin I High Sens 41.9 H* B-Natriuretic Peptide 1495 H Total Protein 6.4 Albumin 3.7 Globulin 2.7 Albumin/Globulin Ratio 1.4 Lipase 21 Nasal Adenovirus (PCR) Nasal B. parapertussis DNA (PCR) Nasal Coronavir 229E PCR Nasal Coronavir HKU1 PCR Nasal Coronavir NL63 PCR Nasal Coronavir OC43 PCR Nasal Enterovir/Rhinovir PCR Nasal Influenza B PCR Nasal Influenza A PCR Nasal Parainfluen 1 PCR Nasal Parainfluen 2 PCR Nasal Parainfluen 3 PCR Nasal Parainfluen 4 PCR Nasal RSV (PCR) Nasal B.pertussis DNA PCR Nasal C.pneumoniae (PCR) Rivera Human Metapneumo PCR Nasal M.pneumoniae (PCR) Nasal SARS-CoV-2 (PCR) 03/16/24 15:45 WBC RBC Hgb Hct MCV MCH MCHC RDW Plt Count MPV Neut # (Auto) Lymph # (Auto) [place] # (Auto) Eos # (Auto) Baso # (Auto) Absolute Nucleated RBC Nucleated RBC % Sodium Potassium Chloride Carbon Dioxide Anion Gap BUN Creatinine Estimated GFR (MDRD) Glucose Calcium Total Bilirubin AST ALT Alkaline Phosphatase Troponin I High Sens B-Natriuretic Peptide Total Protein Albumin Globulin Albumin/Globulin Ratio Lipase Nasal Adenovirus (PCR) NOT DETECTED Nasal B. parapertussis DNA (PCR) NOT DETECTED Nasal Coronavir 229E PCR NOT DETECTED Nasal Coronavir HKU1 PCR NOT DETECTED Nasal Coronavir NL63 PCR NOT DETECTED Nasal Coronavir OC43 PCR NOT DETECTED Nasal Enterovir/Rhinovir PCR NOT DETECTED Nasal Influenza B PCR NOT DETECTED Nasal Influenza A PCR NOT DETECTED Nasal Parainfluen 1 PCR NOT DETECTED Nasal Parainfluen 2 PCR NOT DETECTED Nasal Parainfluen 3 PCR NOT DETECTED Nasal Parainfluen 4 PCR NOT DETECTED Nasal RSV (PCR) NOT DETECTED Nasal B.pertussis DNA PCR NOT DETECTED Nasal C.pneumoniae (PCR) NOT DETECTED Rivera Human Metapneumo PCR NOT DETECTED Nasal M.pneumoniae (PCR) NOT DETECTED Nasal SARS-CoV-2 (PCR) NOT DETECTED - Rads (name of study) cxr Relevant Findings:: Final report received, See rad report PD Medical Decision Making - ED course Complexity details: reviewed results, re-evaluated patient, considered d ifferential, d/w patient, d/w family, d/w hearing consultant ED course: Patient is a 78-year-old male with a history of COPD. Appears to likely have CHF as well. Has never been told he has this diagnosis. He was given 40 mg of IV Lasix. Given a DuoNeb treatment. Given steroids. Chest x-ray shows pulmonary edema. He remains tachypneic and hypoxic, especially with any exert ion in the emergency department. He is on 1 to 2 L of nasal cannula. I stood him up in the emergency department to recheck him after interventions and he immediately dropped to approximately 84 to 85% on room air. Does not use oxygen at home. We will place the patient in observation for further care. Discussed the case with Dr. Do, hospitalist who accepts This document was made in part using voice recognition software. While efforts are made to proofread this document, sound alike and grammatical errors may occur. Departure - Departure Disposition: ED Place in Observation Clinical Impression: Hypoxia, COPD exacerbation Pulmonary edema Qualifiers: Chronicity: acute Qualified Code(s): J81.0 - Acute pulmonary edema Condition: Stable Discharge Date/Time: 03/16/24 18:29
[2024-03-16 16:02] LABS: BASOPHILS # (AUTO) 0.1 10^3/uL (0.0-0.1); BASOPHILS % (AUTO) 0.6 %; EOSINOPHILS # (AUTO) 0.5 10^3/uL (0.0-0.7); EOSINOPHILS % (AUTO) 4.7 %; HCT - HEMATOCRIT 45.1 % (42.0-52.0); HGB - HEMOGLOBIN 15.1 g/dL (14.0-18.0); LYMPHOCYTES # (AUTO) 0.7 10^3/uL (1.5-3.5); LYMPHOCYTES % (AUTO) 6.1 %; MEAN CORPUSCULAR HEMOGLOBIN 31.1 pg (27.0-31.0); MEAN CORPUSCULAR HGB CONC 33.5 g/dL (32.0-36.0); MEAN CORPUSCULAR VOLUME 92.8 fL (80.0-94.0); MEAN PLATELET VOLUME 8.9 fL (7.4-11.4); MONOCYTES # (AUTO) 1.1 10^3/uL (0.0-1.0); MONOCYTES % (AUTO) 10.6 %; NEUTROPHILS # (AUTO) 8.4 10^3/uL (1.5-6.6); NEUTROPHILS % (AUTO) 77.7 %; PLT - PLATELET COUNT 264 10^3/uL (130-450); RED BLOOD COUNT 4.86 10^6/uL (4.70-6.10); WHITE BLOOD COUNT 10.8 x10^3/uL (4.8-10.8)
--- NOTE | 2024-03-16 16:03 | XRAY Report ---
PROCEDURE: Chest 1V INDICATIONS: CHEST PAIN TECHNIQUE: One view of the chest was acquired. COMPARISON: Lung screening CT dated 01/11/2020. FINDINGS: Surgical changes and devices: None. Lungs and pleura: No pleural effusions or pneumothorax. Lungs are clear. vascular congestion. No d efinite focal infiltrate. Mediastinum: Mediastinal contours appear normal. Heart size is enlarged. Bones and chest wall: No suspicious bony lesions. Overlying soft tissues apNo acute cardiopulmonary process.: Cardiomegaly and mild congestion. No definite focal infiltrate. No pleural effusion or pne umothorax. Reviewed by: Ajay Ceja MD on 03/16/2024 4:02 PM PDT Approved by: Ajay Ceja MD on 03/16/2024 4:02 PM PDT Station ID: [id number]
[2024-03-16 16:20] LABS: ALBUMIN 3.7 g/dL (3.2-5.5); ALBUMIN/GLOBULIN RATIO 1.4 (1.0-2.2); BILIRUBIN,TOTAL 0.8 mg/dL (0.2-1.0); CALCIUM 9.7 mg/dL (8.5-10.3); CREATININE 0.7 mg/dL (0.6-1.3); POTASSIUM 4.4 mmol/L (3.5-4.5); TOTAL PROTEIN 6.4 g/dL (6.4-8.9)
[2024-03-16] MEDS: IPRATROPIUM/ALBUTEROL 3 ML NEB INH STA (16:24)
[2024-03-16 16:30] LABS: TROPONIN I HIGH SENSITIVITY 41.9 ng/L (2.3-19.7)
[2024-03-16] MEDS: FUROSEMIDE 40 MG/4 ML VIAL IVP STA (16:42)
[2024-03-16 16:59] LABS: B. PARAPERTUSSIS- RESP PCR PAN NOT DETECTED; B. PERTUSSIS- RESP PCR PANEL NOT DETECTED; C. PNEUMONIAE- RESP PCR PANEL NOT DETECTED; CORONAVIRUS 229E-RESP PCR NOT DETECTED; CORONAVIRUS HKU1-RESP PCR NOT DETECTED; CORONAVIRUS NL63-RESP PCR NOT DETECTED; CORONAVIRUS OC43-RESP PCR NOT DETECTED; HUMAN METAPNEUMOVIRUS NOT DETECTED; INFLUENZA A- RESP PCR PANEL NOT DETECTED; INFLUENZA B - RESP PCR PANEL NOT DETECTED; M. PNEUMONIAE- RESP PCR PANEL NOT DETECTED; PARAINFLUENZA VIRUS 1 NOT DETECTED; PARAINFLUENZA VIRUS 2 NOT DETECTED; PARAINFLUENZA VIRUS 3 NOT DETECTED; PARAINFLUENZA VIRUS 4 NOT DETECTED; RHINOVIRUS/ENTEROVIRUS NOT DETECTED; RSV- RESP PCR PANEL NOT DETECTED; SARS-CoV-2 -RESP PCR PANEL NOT DETECTED
[2024-03-16] MEDS ORDERED: ACETAMINOPHEN 325 MG TABLET PO PRN (17:42)
[2024-03-16] MEDS ORDERED: oxyCODONE 5 MG TABLET PO PRN (17:42)
[2024-03-16] MEDS ORDERED: ONDANSETRON ODT 4 MG TABLET TL PRN (17:42)
[2024-03-16] MEDS ORDERED: ONDANSETRON 4 MG/2 ML VIAL IVP PRN (17:42)
--- NOTE | 2024-03-16 19:30 | HISTORY & PHYSICAL EXAMINATION ---
Chief Complaint - Chief Complaint Chief Complaint: short of breath for weeks. History of Present Illness - Admitted From Admitted From:: home - History Obtained From Records Reviewed: Ted History obtained from: Dr. Tomas Exam Limitations: none - History of Present Illness HPI Comment/Other: He presented to the emergency room after driving himself there. He has been having shortness of breath and cough for several weeks. about 3 months ago he felt like his CPAP was not working anymore. He has obstructive sleep apnea and uses a CPAP at night. So he started sleeping in the recliner in the living room . He felt more comfortable that way. Then 3 weeks ago he felt like the CPAP was not working at all. Started developing orthopnea, and pedal edema. Decreased appetite. Food just does not taste good and he just does not want to eat. Leg edema getting worse. It is getting to the point where he cannot lay flat. And he cannot walk across the room anymore. This shortness of breath is getting to the point where it was started to happen at rest so his daughter drove him here to the emergency room. He was afebrile with a heart rate of 47, a blood pressure of 139/89, and he was 88-89% on room air. That was at rest. If he walked he dropped to 87 on room air. While he does have a history of COPD and is a current 1 pack/day smoker, he is not on home oxygen. He does have a CPAP machine that he uses for JANNET. And occasionally he will use an albuterol inhaler. He denies any fever, chills, sore throat, phlegm production, eustachian tube dysfunction. There is quite a bit of allergens in the air and patients are presenting with congestion, cough and wheezing from allergies but he said he is never had allergies before. He denies any chest pain. But he tells me that he never had chest pain with his 2 silent MIs in the . He denies palpitations. Reviewing the chart from his primary care provider office, his weight was 163 pounds in June 2023. 164 kg in October 2023. And 160.4 pounds in December 2023. Today's weight he is 157.3 kg. The ER provider found him to be an alert and oriented elderly gentleman, no respiratory distress with clear lungs but he had 2+ pitting edema bilaterally. He does not describe JVD. His white cell count was mildly elevated at 10.8. Hemoglobin 15.1. Sodium was 128. In reviewing his primary care provider office notes he is chronically hyponatremic. Usually between 129-131. BUN and creatinine are normal. Random glucose 167. Troponin is a 41.9. AST 48, ALT 76, and BNP is 1495. A viral panel was done and no viruses are detected. Treatment in the ER consisted of Lasix 40 mg IV push once, and DuoNeb. While he had good diuresis with that, symptomatically he was still short of breath at rest, and did not want to lay down. He still has a 2+ edema. After discussing the case with the ER provider the ER provider thinks that there may be some COPD exacerbation going on, but I think there may be more CHF than COPD. Nevertheless the patient is still hypoxic, symptomatic help place him in observation status to continue to diurese him. In reviewing the medical record this patient has not had an echocardiogram in the past. However an old CT of the chest done for cancer screening in 2022 shows moderate upper lobe predominant pulmonary emphysema and mild subpleural reticular opacities involving all lobes of the bilateral hemithoraces. Findings were compatible with early pleural scarring. No fibrosis. The mediastinum was normal and there was no adenopathy. He had abdominal aortic aneurysm of 5.4 cm. History - Past Medical History Cardiovascular: reports: Congestive heart failure, Hypertension, High cholesterol, Coronary artery disease, CA (2 silent MIs), Other (orthostatic syncope, AAA 5.4 cm) Respiratory: reports: COPD, Shortness of breath, Sleep apnea (since 2005), CPAP use, Other (chronic bronchitis) Neuro: reports: None Endocrine/Autoimmune: reports: Type 2 diabetes GI: reports: Colon polyps (FOBT stool, 2015 polyp removed) : reports: Incontinence, Frequency, Other (bilateral kidney cysts) HEENT: reports: Other (angular chelitis/gingival ecession severe) Psych: reports: None Musculoskeletal: reports: None Derm: reports: Eczema, Other (SK, cheery angioma, chronic itching) Other Past Medical History: AAA 6cm, grovers disease - Past Surgical History General: reports: Hiatal hernia repair, Colonoscopy Ortho: reports: 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 Mom age 92 with old age and dementia. Sister had cancer and stroke. Brother with obstructive sleep apnea. Daughter with obstructive sleep apnea Living arrangement: At home Living Situation: With spouse/s.o. Social History Notes: 1 pack/day for the last 60 years. Continues to smoke. No history of alcohol abuse. He is from [place] and moved in with his daughter and son-in-law 4 years ago. It was just getting too hard to live by themselves. He and his moved in. 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 No history of recreational substance abuse. - POLST Patient has POLST: No POLST Status: DNR Meds/Allgy - Home Medications Home Medications: Ambulatory Orders Medication Instructions Recorded Confirmed Acetaminophen [Acetaminophen Extra 1 tab PO DAILY 03/16/24 03/16/24 Strength] Albuterol Oral Soln [Ventolin] 1 inh INH DAILY 03/16/24 03/16/24 Aspirin [[place] Aspirin] 1 tab PO DAILY 03/16/24 03/16/24 Atorvastatin [Lipitor] 1 tab PO BID 03/16/24 03/16/24 Losartan Potassium 1 tab PO DAILY 03/16/24 03/16/24 Minocycline HCl 1 cap PO BID 03/16/24 03/16/24 Niacin [Niaspan] 1 tab PO DAILY 03/16/24 03/16/24 Spironolactone [Aldactone] 1 tab PO DAILY 03/16/24 03/16/24 Triamcinolone 0.1% Cream [Kenalog 1 applic TOP DAILY 03/16/24 03/16/24 0.1% Cream] metFORMIN [Glucophage] 1 tab PO BID 03/16/24 03/16/24 - Allergies Allergies/Adverse Reactions: Allergies Allergy/AdvReac Type Severity Reaction Status Date / Time No Known Drug Allergies Allergy Verified 03/16/24 15:21 Review of Systems - Constitutional Constitutional: reports: Fatigue, Malaise, Poor appetite, Weight loss. denies: Fever, Chills - Eyes Eyes: reports: Vision loss. denies: Pain, Irritation, Amaurosis, Blurred vision - Ears, Nose & Throat Ears, Nose & Throat: reports: Hearing loss, Postnasal drainage, Bleeding gums, Dental decay. denies: Ear pain, Hearing aids, Tinnitus, Vertigo, Sore throat, Hoarseness - Cardiovascular Cariovascular: reports: Edema, Lightheadedness, Exertional dyspnea, Decr. exercise tolerance, Orthopnea. denies: Irregular heart rate, Palpitations, Chest pain - Respiratory Respiratory: reports: Cough, Sputum production ( Little worse, no hemoptysis), Snoring, SOB at rest, SOB with exertion, Apnea. denies: Wheezing - Gastrointestinal Gastrointestinal: denies: Abdominal pain, Abdominal distention, Constipation, Diarrhea, Black stools, Bloody stools - Genitourinary Genitourinary: reports: Frequency, Incontinence, Nocturia. denies: Dysuria - Musculoskeletal Musculoskeletal: reports: Stiffness, Joint pain. denies: Muscle pain, Back pain, Muscle aches - Integumentary Integumentary: reports: Rash, Pruritis - Neurological Neurological: reports: General weakness. denies: Focal weakness, Headache, Dizziness, Memory problems, Pre-existing deficit, Seizures - Psychiatric Psychiatric: reports: Other ( lots of insomnia.). denies: Depression, Anxiety, Suicidal - Endocrine Endocrine: denies: Polyuria, Polydypsia, Polyphagia - Hematologic/Lymphatic Hematologic/Lymphatic: denies: Anemia, Bruising Prior Level of Functionality: He can dress himself, feed himself. Over the last few months he finds himself stumbling a little bit so he uses a cane. He moved in with his daughter and son-in-law because it was getting hard to be living by themselves 4 years ago. He does use the CPAP mask. But no wheelchair. Does not drive anymore. Exam - Vital Signs Reviewed Vital Signs: Yes Vital Signs: Vital Signs x48h Temp Pulse Resp BP BP Pulse Ox O2 Flow Rate 03/16/24 17:56 106 H 30 H 140/138 H 95 2 03/16/24 16:34 110 H 22 132/112 H 92 1 03/16/24 16:25 98 23 1 03/16/24 16:04 112 H 22 131/110 H 92 1 03/16/24 15:57 131/110 H 03/16/24 15:48 36.5 C 112 H 24 158/101 H 88 L 07/29/24 15:13 36.2 C L 47 L 22 139/89 H 89 L - Physical Exam General Appearance: positive: No acute distress, Alert Eyes Bilateral: positive: PERRL ENT: positive: No signs of dehydration Neck: positive: Other ( Does have mild JVD at 45 degrees). negative: Stiff neck Respiratory: positive: No respiratory distress ( of the carry a full conversation while he is in bed. Spontaneously laughed at some of the jokes.), Rales ( at the bases) Cardiovascular: positive: Regular rate & rhythm, Systolic murmur Peripheral Pulses: positive: 1+ Abdomen: positive: Non-tender, No organomegaly, Nml bowel sounds, Hepatomegaly Skin: positive: Warm, Dry, Pallor Extremities: positive: Full ROM, Pedal edema ( Very severe and very pitting. But the skin is not stretched thin. No venous stasis dermatitis. No skin breakdown.) Neurologic/Psychiatric: positive: Oriented x3, CN's nml (2-12) (excpet mild deafness), Motor nml Conclusion/Plan - Problem List (1) Acute CHF Conclusion/Plan: This is a new diagnosis for this gentleman. I am noting that he is on spironolactone and losartan at home. When I look at his EMR there is no diagnosis of CHF. ever he is a long-term smoker, and I could postulate that he has right-sided heart failure from cor pulmonale and high pulmonary pressures. The back of pressure in his liver causing passive congestion and then going on to give him pedal edema. Plan: Observation status I will order: Lasix 40 mg IV push twice daily Coreg 6.25 mg p.o. twice daily Echocardiogram in the morning Continue losartan and hold off on spironolactone temporarily Qualifiers: Heart failure type: unspecified Qualified Code(s): I50.9 - Heart failure, unspecified (2) COPD exacerbation Conclusion/Plan: No wheezing. Does have and exhalation phase prolongation. But there is no c ough, congestion. CT in the past shows changes of emphysema. But he has not had hypoxemia in the past. Plan: 1 dose of Solu-Medrol DuoNeb as needed (3) Weight loss, unintentional Conclusion/Plan: Screening CT done for lung cancer was negative in 2022. He has had colonoscopy and polyps were found but he is not due for another colonoscopy yet. I Will ch nelly PSA, CEA (4) Type 2 diabetes mellitus, controlled Conclusion/Plan: At home he takes metformin. Plan: Check lactic acid Sliding scale insulin while here A1c in the morning Qualifiers: Diabetes mellitus group home insulin use: without group home use Diabetes mellitus complication status: without complication Qualified Code(s): E11.9 - Type 2 diabetes mellitus without complications (5) Nicotine addiction Conclusion/Plan: He says that a nicotine patch may help. So I am prescribing a patch of 14 mg. I am also can give him Xanax 0.25 mg at night. Qualifiers: Nicotine product type: cigarettes Substance use status: uncomplicated Qualified Code(s): F17.210 - Nicotine dependence, cigarettes, uncomplicated - Lab Results Lab results reviewed: Yes Fish Bones: 03/16/24 15:45 03/16/24 15:45 - Diagnostic Imaging Results Diagnostic Imaging Results: positive: Final report reviewed Diagnostic Imaging Results Comments: Chest x-ray without pleural effusions or pneumothorax or definite focal infiltrates. Cardiomegaly and mild congestion present. - EKG Results EKG Interpreted Independently: No Core Measures - Anticipated LOS I expect patient to be DC'd or transferred within 96 hours.: Yes - DVT/VTE - Prophylaxis VTE/DVT Prophylaxis med ordered at admit?: Yes
[2024-03-16] MEDS ORDERED: IPRATROPIUM/ALBUTEROL 3 ML NEB INH PRN (19:49)
[2024-03-16] MEDS ORDERED: ALPRAZolam 0.25 MG TABLET PO PRN (20:02)
[2024-03-16] MEDS: carvediloL 3.125 MG TABLET PO SCH (20:37)
[2024-03-16] MEDS: FUROSEMIDE 40 MG/4 ML VIAL IVP SCH (20:37)
[2024-03-16] MEDS: NICOTINE 14 MG PATCH TOP SCH (20:37)
[2024-03-16] MEDS: SODIUM CHLORIDE FLUSH 0.9% 10 ML SYRINGE IVP SCH (20:40)
[2024-03-16] MEDS: INSULIN LISPRO 300 UNIT/3 ML PEN SUBQ SCH (21:22)
[2024-03-16] MEDS: methylPREDNISolone SUCCINATE 40 MG/ML VIAL IVP SCH (21:22)
[2024-03-16] MEDS: BENZOCAINE/MENTHOL LOZENGE MM PRN (22:34)
[2024-03-17] MEDS: SODIUM CHLORIDE FLUSH 0.9% 10 ML SYRINGE IVP PRN (05:27)
[2024-03-17 06:07] LABS: CREATININE 0.8 mg/dL (0.6-1.3); MAGNESIUM 1.3 mg/dL (1.7-2.3); POTASSIUM 3.9 mmol/L (3.5-4.5)
[2024-03-17] MEDS: ENOXAPARIN 40 MG/0.4 ML SYRINGE SUBQ SCH (08:27)
[2024-03-17] MEDS: LOSARTAN 50 MG TABLET PO SCH (08:27)
[2024-03-17 08:35] LABS: ESTIMATED AVERAGE GLUCOSE 151 mg/dL (70-100); HEMOGLOBIN A1c% 6.9 % (4.27-6.07)
--- NOTE | 2024-03-17 12:40 | PROVIDER PROGRESS NOTE ---
Subjective - Prog Note Date Prog Note Date: 03/17/24 Prog Note Time: 12:37 - Subjective Pt reports feeling: Improved Subjective: he thinks he wants to go home but his raises her eyesbrows because he is still tachypneic w exertion, and still with sig pedal edema even though I diuresed him. He is grumpty bc he urinated all night long. still w orthopnea. Cant lay below 45-50 degrees. he and I had a talk last night about CODE STATUS and he wants to be DO NOT RESUSCITATE. Since his is in the room to the operating to do advance care planning. Please see that under separate dictation. his tells me that we should also note that he is a disease that she did not put on his past medical history. And that he is taking a steroid cream for it. 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 Symptoms include a itchy rash of small, reddish spots on the chest and back. Treatment includes medications, phototherapy and lifestyle changes. 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 Current Medications - Current Medications Current Medications: Active Medications Acetaminophen (Acetaminophen 325 Mg Tablet) 650 mg PO Q4HR PRN PRN Reason: Pain 1 to 4, or Fever Albuterol/Ipratropium (Ipratropium/Albuterol 3 Ml Neb) 3 ml INH RTQID PRN PRN Reason: Shortness of Air/Wheezing Alprazolam (Alprazolam 0.25 Mg Tablet) 0.25 mg PO QPM PRN PRN Reason: Insomnia Carvedilol (Carvedilol 3.125 Mg Tablet) 6.25 mg PO BID [facility] Last Admin: 03/17/24 08:27 Dose: 6.25 mg Enoxaparin Sodium (Enoxaparin 40 Mg/0.4 Ml Syringe) 40 mg SUBQ DAILY [facility] Last Admin: 03/17/24 08:27 Dose: 40 mg Furosemide (Furosemide 40 Mg/4 Ml Vial) 40 mg IVP BIDDIURETIC [facility] Insulin Human Lispro (Insulin Lispro 300 Unit/3 Ml Pen) 1 - 5 unit SUBQ 0800,1200,1700,2100 [facility]; Protocol Last Admin: 03/17/24 11:42 Dose: 2 unit Losartan Potassium (Losartan 50 Mg Tablet) 25 mg PO DAILY [facility] Last Admin: 03/17/24 08:27 Dose: 25 mg Methylprednisolone (Methylprednisolone Succinate 40 Mg/Ml Vial) 40 mg IVP TID [facility] Stop: 03/17/24 14:01 Last Admin: 03/17/24 05:27 Dose: 40 mg Nicotine (Nicotine 14 Mg Patch) 1 patch TOP DAILY [facility] Last Admin: 03/17/24 08:28 Dose: 1 patch Ondansetron HCl (Ondansetron Odt 4 Mg Tablet) 4 mg TL Q6HR PRN PRN Reason: Nausea / Vomiting Ondansetron HCl (Ondansetron 4 Mg/2 Ml Vial) 4 mg IVP Q6HR PRN PRN Reason: Nausea / Vomiting Oxycodone HCl (Oxycodone 5 Mg Tablet) 5 mg PO Q4HR PRN PRN Reason: Pain 5 to 7 Sodium Chloride (Sodium Chloride Flush 0.9% 10 Ml Syringe) 10 ml IVP PRN PRN PRN Reason: NEEDED PER PROVIDER ORDERS Last Admin: 03/17/24 05:27 Dose: 10 ml Sodium Chloride (Sodium Chloride Flush 0.9% 10 Ml Syringe) 10 ml IVP 0100,0900,1700 [facility] Last Admin: 03/17/24 00:08 Dose: 10 ml Throat Lozenges (Benzocaine/Menthol Lozenge) 1 lozenge MM Q2HR PRN PRN Reason: Throat pain Last Admin: 03/17/24 11:53 Dose: 1 lozenge Acetaminophen [Acetaminophen Extra Strength] 500 mg PO DAILY 03/16/24 Aspirin [[place] Aspirin] 81 mg PO DAILY 03/16/24 Atorvastatin [Lipitor] 10 mg PO QPM 03/16/24 Losartan Potassium 25 mg PO DAILY 03/16/24 Minocycline HCl 100 mg PO BID 03/16/24 Niacin [Niaspan] 1 tab PO DAILY 03/16/24 Spironolactone [Aldactone] 25 mg PO BID 03/16/24 Triamcinolone 0.1% Cream [Kenalog 0.1% Cream] 1 applic TOP DAILY 03/16/24 metFORMIN [Glucophage] 500 mg PO BIDWM 03/16/24 Albuterol Sulf [Ventolin Hfa Inhaler] 1 - 2 puffs INH Q4H PRN 03/17/24 Objective - Vital Signs/Intake & Output Reviewed Vital Signs: Yes Vital Signs: Vital Signs x48h Temp Pulse Pulse Resp BP Pulse Ox O2 Flow Rate 03/17/24 11:26 36.2 C L 72 20 120/82 H 94 3 03/17/24 07:40 3 03/17/24 07:38 36.1 C L 76 18 134/88 H 96 3 03/17/24 05:46 36.3 C L 77 22 124/81 H 95 3 Intake & Output: Intake & Output 03/14/24 03/15/24 03/16/24 03/17/24 23:59 23:59 23:59 23:59 Intake Total 540 3160 Output Total 1680 2730 Balance -1140 430 - Objective General Appearance: positive: Alert, Mild distress, Other ( Elderly gentleman that had tachypnea with speaking to me last night, but not this morning. But he does get tachypnic trying to roll over in bed, or sit up.) Eyes Bilateral: positive: PERRL, EOMI ENT: positive: Other (poor dentition) Neck: positive: No JVD (he had some last night and none today). negative: Stiff neck Respiratory: positive: Wheezes (right lung), Rales (both bases) Cardiovascular: positive: Regular rate & rhythm, Systolic murmur Abdomen: positive: Non-tender, No organomegaly, Nml bowel sounds, No distention Skin: positive: Warm, Dry, Pallor, Other ( 2 small red eschar areas in the upper thigh before he gets to the inguinal fold where his biopsies for Grovers disease were. A peeling rash of the lower abdomen wall, and anterior thighs. Much like you peel with a sunburn) Extremities: positive: Full ROM, Pedal edema (still 2+ up to thigh) Neurologic/Psychiatric: positive: Oriented x3, CN's nml (2-12) (mild deafness), Motor nml - Lab Results Fish Bones: 03/16/24 15:45 03/17/24 05:20 Other Labs: Lab Results x24hrs 03/17/24 03/17/24 03/17/24 Range/Units 11:20 07:32 05:20 WBC (4.8-10.8) x10^3/uL RBC (4.70-6.10) 10^6/uL Hgb (14.0-18.0) g/dL Hct (42.0-52.0) % MCV (80.0-94.0) fL MCH (27.0-31.0) pg MCHC (32.0-36.0) g/dL RDW (12.0-15.0) % Plt Count (130-450) 10^3/uL MPV (7.4-11.4) fL Neut # (Auto) (1.5-6.6) 10^3/uL Lymph # (Auto) (1.5-3.5) 10^3/uL Falls # (Auto) (0.0-1.0) 10^3/uL Eos # (Auto) (0.0-0.7) 10^3/uL Baso # (Auto) (0.0-0.1) 10^3/uL Absolute Nucleated RBC x10^3/uL Nucleated RBC % /100WBC Sodium (135-145) mmol/L Potassium (3.5-4.5) mmol/L Chloride (101-111) mmol/L Carbon Dioxide (21-32) mmol/L Anion Gap (6-13) BUN (6-20) mg/dL Creatinine (0.6-1.3) mg/dL Estimated GFR (MDRD) (>89) Glucose (74-104) mg/dL POC Whole Bld Glucose 191 H 191 H (70 - 100) mg/dL Estimat Average Glucose 151 H (70-100) mg/dL Hemoglobin A1c % 6.9 H (4.27-6.07) % Calcium (8.5-10.3) mg/dL Magnesium (1.7-2.3) mg/dL Total Bilirubin (0.2-1.0) mg/dL AST (10-42) IU/L ALT (10-60) IU/L Alkaline Phosphatase (42-121) IU/L Troponin I High Sens (2.3-19.7) ng/L B-Natriuretic Peptide (5-100) pg/mL Total Protein (6.4-8.9) g/dL Albumin (3.2-5.5) g/dL Globulin (2.1-4.2) g/dL Albumin/Globulin Ratio (1.0-2.2) Lipase (11-82) U/L Carcinoembryonic Ag ng/mL Free PSA (0.16-2.81) ng/mL % Free PSA (25-100) % Total PSA (0.000-2.000) ng/mL Nasal Adenovirus (PCR) Nasal B. parapertussis DNA (PCR) Nasal Coronavir 229E PCR Nasal Coronavir HKU1 PCR Nasal Coronavir NL63 PCR Nasal Coronavir OC43 PCR Nasal Enterovir/Rhinovir PCR Nasal Influenza B PCR Nasal Influenza A PCR Nasal Parainfluen 1 PCR Nasal Parainfluen 2 PCR Nasal Parainfluen 3 PCR Nasal Parainfluen 4 PCR Nasal RSV (PCR) Nasal B.pertussis DNA PCR Nasal C.pneumoniae (PCR) Rivera Human Metapneumo PCR Nasal M.pneumoniae (PCR) Nasal SARS-CoV-2 (PCR) 03/17/24 03/17/24 03/17/24 Range/Units 05:20 05:20 05:20 WBC (4.8-10.8) x10^3/uL RBC (4.70-6.10) 10^6/uL Hgb (14.0-18.0) g/dL Hct (42.0-52.0) % MCV (80.0-94.0) fL MCH (27.0-31.0) pg MCHC (32.0-36.0) g/dL RDW (12.0-15.0) % Plt Count (130-450) 10^3/uL MPV (7.4-11.4) fL Neut # (Auto) (1.5-6.6) 10^3/uL Lymph # (Auto) (1.5-3.5) 10^3/uL Falls # (Auto) (0.0-1.0) 10^3/uL Eos # (Auto) (0.0-0.7) 10^3/uL Baso # (Auto) (0.0-0.1) 10^3/uL Absolute Nucleated RBC x10^3/uL Nucleated RBC % /100WBC Sodium (135-145) mmol/L Potassium (3.5-4.5) mmol/L Chloride (101-111) mmol/L Carbon Dioxide (21-32) mmol/L Anion Gap (6-13) BUN (6-20) mg/dL Creatinine (0.6-1.3) mg/dL Estimated GFR (MDRD) (>89) Glucose (74-104) mg/dL POC Whole Bld Glucose (70 - 100) mg/dL Estimat Average Glucose (70-100) mg/dL Hemoglobin A1c % (4.27-6.07) % Calcium (8.5-10.3) mg/dL Magnesium (1.7-2.3) mg/dL Total Bilirubin (0.2-1.0) mg/dL AST (10-42) IU/L ALT (10-60) IU/L Alkaline Phosphatase (42-121) IU/L Troponin I High Sens (2.3-19.7) ng/L B-Natriuretic Peptide 2045 H (5-100) pg/mL Total Protein (6.4-8.9) g/dL Albumin (3.2-5.5) g/dL Globulin (2.1-4.2) g/dL Albumin/Globulin Ratio (1.0-2.2) Lipase (11-82) U/L Carcinoembryonic Ag 5.5 ng/mL Free PSA 0.061 L (0.16-2.81) ng/mL % Free PSA 15 L (25-100) % Total PSA 0.399 (0.000-2.000) ng/mL Nasal Adenovirus (PCR) Nasal B. parapertussis DNA (PCR) Nasal Coronavir 229E PCR Nasal Coronavir HKU1 PCR Nasal Coronavir NL63 PCR Nasal Coronavir OC43 PCR Nasal Enterovir/Rhinovir PCR Nasal Influenza B PCR Nasal Influenza A PCR Nasal Parainfluen 1 PCR Nasal Parainfluen 2 PCR Nasal Parainfluen 3 PCR Nasal Parainfluen 4 PCR Nasal RSV (PCR) Nasal B.pertussis DNA PCR Nasal C.pneumoniae (PCR) Rivera Human Metapneumo PCR Nasal M.pneumoniae (PCR) Nasal SARS-CoV-2 (PCR) 03/17/24 03/16/24 03/16/24 Range/Units 05:20 21:06 15:45 WBC (4.8-10.8) x10^3/uL RBC (4.70-6.10) 10^6/uL Hgb (14.0-18.0) g/dL Hct (42.0-52.0) % MCV (80.0-94.0) fL MCH (27.0-31.0) pg MCHC (32.0-36.0) g/dL RDW (12.0-15.0) % Plt Count (130-450) 10^3/uL MPV (7.4-11.4) fL Neut # (Auto) (1.5-6.6) 10^3/uL Lymph # (Auto) (1.5-3.5) 10^3/uL Falls # (Auto) (0.0-1.0) 10^3/uL Eos # (Auto) (0.0-0.7) 10^3/uL Baso # (Auto) (0.0-0.1) 10^3/uL Absolute Nucleated RBC x10^3/uL Nucleated RBC % /100WBC Sodium 128 L (135-145) mmol/L Potassium 3.9 (3.5-4.5) mmol/L Chloride 86 L (101-111) mmol/L Carbon Dioxide 36 H (21-32) mmol/L Anion Gap 6.0 (6-13) BUN 21 H (6-20) mg/dL Creatinine 0.8 (0.6-1.3) mg/dL Estimated GFR (MDRD) 93 (>89) Glucose 251 H (74-104) mg/dL POC Whole Bld Glucose 135 H (70 - 100) mg/dL Estimat Average Glucose (70-100) mg/dL Hemoglobin A1c % (4.27-6.07) % Calcium 9.0 (8.5-10.3) mg/dL Magnesium 1.3 L (1.7-2.3) mg/dL Total Bilirubin (0.2-1.0) mg/dL AST (10-42) IU/L ALT (10-60) IU/L Alkaline Phosphatase (42-121) IU/L Troponin I High Sens (2.3-19.7) ng/L B-Natriuretic Peptide (5-100) pg/mL Total Protein (6.4-8.9) g/dL Albumin (3.2-5.5) g/dL Globulin (2.1-4.2) g/dL Albumin/Globulin Ratio (1.0-2.2) Lipase (11-82) U/L Carcinoembryonic Ag ng/mL Free PSA (0.16-2.81) ng/mL % Free PSA (25-100) % Total PSA (0.000-2.000) ng/mL Nasal Adenovirus (PCR) NOT DETECTED Nasal B. parapertussis DNA (PCR) NOT DETECTED Nasal Coronavir 229E PCR NOT DETECTED Nasal Coronavir HKU1 PCR NOT DETECTED Nasal Coronavir NL63 PCR NOT DETECTED Nasal Coronavir OC43 PCR NOT DETECTED Nasal Enterovir/Rhinovir PCR NOT DETECTED Nasal Influenza B PCR NOT DETECTED Nasal Influenza A PCR NOT DETECTED Nasal Parainfluen 1 PCR NOT DETECTED Nasal Parainfluen 2 PCR NOT DETECTED Nasal Parainfluen 3 PCR NOT DETECTED Nasal Parainfluen 4 PCR NOT DETECTED Nasal RSV (PCR) NOT DETECTED Nasal B.pertussis DNA PCR NOT DETECTED Nasal C.pneumoniae (PCR) NOT DETECTED Rivera Human Metapneumo PCR NOT DETECTED Nasal M.pneumoniae (PCR) NOT DETECTED Nasal SARS-CoV-2 (PCR) NOT DETECTED 03/16/24 03/16/24 03/16/24 Range/Units 15:45 15:45 15:45 WBC 10.8 (4.8-10.8) x10^3/uL RBC 4.86 (4.70-6.10) 10^6/uL Hgb 15.1 (14.0-18.0) g/dL Hct 45.1 (42.0-52.0) % MCV 92.8 (80.0-94.0) fL MCH 31.1 H (27.0-31.0) pg MCHC 33.5 (32.0-36.0) g/dL RDW 13.0 (12.0-15.0) % Plt Count 264 (130-450) 10^3/uL MPV 8.9 (7.4-11.4) fL Neut # (Auto) 8.4 H (1.5-6.6) 10^3/uL Lymph # (Auto) 0.7 L (1.5-3.5) 10^3/uL Falls # (Auto) 1.1 H (0.0-1.0) 10^3/uL Eos # (Auto) 0.5 (0.0-0.7) 10^3/uL Baso # (Auto) 0.1 (0.0-0.1) 10^3/uL Absolute Nucleated RBC 0.00 x10^3/uL Nucleated RBC % 0.0 /100WBC Sodium 128 L (135-145) mmol/L Potassium 4.4 (3.5-4.5) mmol/L Chloride 90 L (101-111) mmol/L Carbon Dioxide 30 (21-32) mmol/L Anion Gap 8.0 (6-13) BUN 17 (6-20) mg/dL Creatinine 0.7 (0.6-1.3) mg/dL Estimated GFR (MDRD) 109 (>89) Glucose 167 H (74-104) mg/dL POC Whole Bld Glucose (70 - 100) mg/dL Estimat Average Glucose (70-100) mg/dL Hemoglobin A1c % (4.27-6.07) % Calcium 9.7 (8.5-10.3) mg/dL Magnesium (1.7-2.3) mg/dL Total Bilirubin 0.8 (0.2-1.0) mg/dL AST 48 H (10-42) IU/L ALT 76 H (10-60) IU/L Alkaline Phosphatase 83 (42-121) IU/L Troponin I High Sens 41.9 H* (2.3-19.7) ng/L B-Natriuretic Peptide 1495 H (5-100) pg/mL Total Protein 6.4 (6.4-8.9) g/dL Albumin 3.7 (3.2-5.5) g/dL Globulin 2.7 (2.1-4.2) g/dL Albumin/Globulin Ratio 1.4 (1.0-2.2) Lipase 21 (11-82) U/L Carcinoembryonic Ag ng/mL Free PSA (0.16-2.81) ng/mL % Free PSA (25-100) % Total PSA (0.000-2.000) ng/mL Nasal Adenovirus (PCR) Nasal B. parapertussis DNA (PCR) Nasal Coronavir 229E PCR Nasal Coronavir HKU1 PCR Nasal Coronavir NL63 PCR Nasal Coronavir OC43 PCR Nasal Enterovir/Rhinovir PCR Nasal Influenza B PCR Nasal Influenza A PCR Nasal Parainfluen 1 PCR Nasal Parainfluen 2 PCR Nasal Parainfluen 3 PCR Nasal Parainfluen 4 PCR Nasal RSV (PCR) Nasal B.pertussis DNA PCR Nasal C.pneumoniae (PCR) Rivera Human Metapneumo PCR Nasal M.pneumoniae (PCR) Nasal SARS-CoV-2 (PCR) ABX Reporting Has patient been on IV antibiotics over the past 48 hours?: No Assessment/Plan - Problem List (1) Acute CHF Impression: This is a new diagnosis for this gentleman. I am noting that he is on spironolactone and losartan at home. When I look at his EMR there is no diagnosis of CHF. ever he is a long-term smoker, and I could postulate that he has right-sided heart failure from cor pulmonale and high pulmonary pressures. The back of pressure in his liver causing passive congestion and then going on to give him pedal edema. Between yesterday and today he has gone from 71.5 kg to 70 kg. His fluid balance is negative. He urinated 1680 cc and his balance is overall -1140 cc. He is eating 100% of his food. his BNP went up. He was approximately 1400 yesterday and he is over 2000 today. Plan: change from Observation status to inpatient I will continue: Lasix 40 mg IV push twice daily but change the dosing schedule so that his second dose is at 2 pm and he doesn't spend the night peeing Coreg 6.25 mg p.o. twice daily is being tolerated (pulse is in the 70s) I have order echo for today. Continue losartan and hold off on spironolactone temporarily Qualifiers: Heart failure type: unspecified Qualified Code(s): I50.9 - Heart failure, unspecified (2) COPD exacerbation with new acute resp failure w hypoxemia Conclusion/Plan: Yesterday he did not have wheezing but I do hear a faint one in right lung today. Continues to have end exhalation phase prolongation. But there is no cough, congestion. CT in the past shows changes of emphysema. But he has not had hypoxemia in the past. Plan: I did order 3 doses of solumedrol and last dose tonight. Seems a little worse on exam today. Continue DuoNeb as needed (3) Weight loss, unintentional Conclusion/Plan: Screening CT done for lung cancer was negative in 2022. He has had colonoscopy and polyps were found but he is not due for another colonoscopy yet. His percent PSA is less than 25%. It is 15%. That means likelihood of cancer. Total PSA, though, is very low at 0.399. Really concerned about prostate cancer. As for colon cancer risk, CEA is low at 5.5 in spite of his smoking. he has had a recent CT scan and there is no lung cancer. So my suspicion is this gentleman may be deteriorating from cardiopulmonary disease but not neoplasm (4) Type 2 diabetes mellitus, controlled Conclusion/Plan: At home he takes metformin. A1c is 6.9%. I did not order the lactic acid af ter almost sugar for tomorrow morning. Glucose is 154 and 191 today. I have him on sliding scale insulin. 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 So I prescribed a patch of 14 mg. I am also ordered Xanax 0.25 mg at night. said that the latter medication really did not help. Because he had to urinate so many times last night he could not get any sleep. So I have changed the Lasix dosing deceiving get more sleep tonight. He does like the nicotine patch. Qualifiers: Nicotine product type: cigarettes Substance use status: uncomplicated Qualified Code(s): F17.210 - Nicotine dependence, cigarettes, uncomplicated
--- NOTE | 2024-03-17 13:36 | ADVANCE CARE PLANNING NOTE ---
Advance Care Planning - Planning Encounter Date: 03/17/24 Time: 13:12 Purpose: codify code status Parties in Attendance: , patient and hospitalist Decisional Capacity of the Patient: He is a little bit forgetful but says that he still makes decisions. He is alert, oriented to person, place, situation. Misstated the date and then corrected himself. - Diagnosis for Encounter (1) COPD exacerbation Summary: This gentleman has moderate to severe emphysema of the upper lobes. He is not on home oxygen. But gradually worsening dyspnea on exertion. 4 years ago came to live with his daughter because he and his could no longer make it on her own. - Encounter Subjective/Patient's Story: He is from [place] and moved in with his daughter and son-in-law 4 years ago. It was just getting too hard to live by themselves. He and his moved in. 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 Describes working in [place] in [place]. 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 That is how he ended his career. No history of recreational substance abuse. Continues to smoke a pack a day. Just cannot seem to quit it. While he does not need a walker, he does use a cane. He rolls his eyes and tells me that if he does not use it his and daughter all over his case. He is still able to dress himself, feed himself, and does not need help in the shower. He is just really slow ambulating because of shortness of breath and overall musculoskeletal pain. He denies any problems with incontinence. He noticed that 3 months ago he was a little bit more dyspneic with exertion than usual. And that even when he rested, he could not seem to catch his breath. He is on a CPAP for obstructive sleep apnea and felt like the CPAP nikolai clancy "was not working right". The dyspnea on exertion has become progressive. He then developed pedal edema. And in the last 3 weeks his severe orthopnea. He no longer sleeps in the bed and sleeps in a recliner in the living room. When his dyspnea and orthopnea became profound enough, his insisted he come to the emergency room and she drove him here. He and his have discussed that they have a really good life. No regrets. "Everyone's got ago sometimes". And they have already discussed that they want to be DO NOT RESUSCITATE. They do not have a POLST form and are amenable to filling 1 out here. They have not filled out paperwork with regards to DURABLE POWER OF COMMUNICABLE DISEASE SPECIALIST but he designates his as the first person to speak to, and then it would be his daughter. They have not discussed what would happen if they can no longer take care of themselves but they are under the impression that they would be staying with her daughter and son-in-law. But they have not formally discussed that. Objective/Medical Story: He presented to the emergency room after driving himself there. He has been having shortness of breath and cough for several weeks. about 3 months ago he felt like his CPAP was not working anymore. He has obstructive sleep apnea and uses a CPAP at night. So he started sleeping in the recliner in the living room. He felt more comfortable that way. Then 3 weeks ago he felt like the CPAP was not working at all. Started developing orthopnea, and pedal edema. Decreased appetite. Food just does not taste good and he just does not want to eat. Leg edema getting worse. It is getting to the point where he cannot lay flat. And he cannot walk across the room anymore. This shortness of breath is getting to the point where it was started to happen at rest so his daughter drove him here to the emergency room. He was afebrile with a heart rate of 47, a blood pressure of 139/89, and he was 88-89% on room air. That was at rest. If he walked he dropped to 87 on room air. While he does have a history of COPD and is a current 1 pack/day smoker, he is not on home oxygen. He does have a CPAP machine that he uses for JANENT. And occasionally he will use an albuterol inhaler. He denies any fever, chills, sore throat, phlegm production, eustachian tube dysfunction. There is quite a bit of allergens in the air and patients are presenting with congestion, cough and wheezing from allergies but he said he is never had allergies before. He denies any chest pain. But he tells me that he never had chest pain with his 2 silent MIs in the . He denies palpitations. Reviewing the chart from his primary care provider office, his weight was 163 pounds in June 2023. 164 kg in October 2023. And 160.4 pounds in December 2023. Today's weight he is 157.3 kg. The ER provider found him to be an alert and oriented elderly gentleman, no respiratory distress with clear lungs but he had 2+ pitting edema bilaterally. He does not describe JVD. His white cell count was mildly elevated at 10.8. Hemoglobin 15.1. Sodium was 128. In reviewing his primary care provider office notes he is chronically hyponatremic. Usually between 129-131. BUN and creatinine are normal. Random glucose 167. Troponin is a 41.9. AST 48, ALT 76, and BNP is 1495. A viral panel was done and no viruses are detected. Treatment in the ER consisted of Lasix 40 mg IV push once, and DuoNeb. While he had good diuresis with that, symptomatically he was still short of breath at rest, and did not want to lay down. He still has a 2+ edema. After discussing the case with the ER provider the ER provider thinks that there may be some COPD exacerbation going on, but I think there may be more CHF than COPD. Nevertheless the patient is still hypoxic, symptomatic help place him in observation status to continue to diurese him. In reviewing the medical record this patient has not had an echocardiogram in the past. However an old CT of the chest done for cancer screening in 2022 shows moderate upper lobe predominant pulmonary emphysema and mild subpleural reticular opacities involving all lobes of the bilateral hemithoraces. Findings were compatible with early pleural scarring. No fibrosis. The mediastinum was normal and there was no adenopathy. He had abdominal aortic aneurysm of 5.4 cm. On examination he appears to be in acute congestive heart failure. This is a new diagnosis for him. I diuresed him overnight. Slight improvement and that his weight is down but he still requires 3 L oxygen. And his BNP is up. Today I will be checking an echocardiogram. He states that the aneurysm is well-known to him and they have no intention of fixing it even with a stent. Goals of Care: He would like to return to home soon as possible. No intention of going to a nursing home facility. Recognize that his days are limited and he would like to spend them with his family. Plan: 1 POLST form filled out today. DO NOT RESUSCITATE if no pulse or pressure, with selective intervention. 2. Echocardiogram to establish valve and muscle function of his heart. Code Status: Do Not Attempt Resuscitation Time spent on advance care plannin
[2024-03-17] MEDS: FUROSEMIDE 40 MG/4 ML VIAL IVP SCH (15:00)
[2024-03-18 04:16] VITALS: O2SAT 94
[2024-03-18 05:56] LABS: BASOPHILS % (AUTO) 0.2 %; EOSINOPHILS # (AUTO) 0.1 10^3/uL (0.0-0.7); EOSINOPHILS % (AUTO) 0.8 %; HCT - HEMATOCRIT 45.3 % (42.0-52.0); HGB - HEMOGLOBIN 15.1 g/dL (14.0-18.0); LYMPHOCYTES % (AUTO) 8.3 %; MEAN CORPUSCULAR HEMOGLOBIN 30.4 pg (27.0-31.0); MEAN CORPUSCULAR HGB CONC 33.3 g/dL (32.0-36.0); MEAN CORPUSCULAR VOLUME 91.1 fL (80.0-94.0); MEAN PLATELET VOLUME 8.9 fL (7.4-11.4); MONOCYTES # (AUTO) 1.2 10^3/uL (0.0-1.0); MONOCYTES % (AUTO) 10.3 %; NEUTROPHILS # (AUTO) 9.5 10^3/uL (1.5-6.6); PLT - PLATELET COUNT 282 10^3/uL (130-450); RED BLOOD COUNT 4.97 10^6/uL (4.70-6.10); RED CELL DISTRIBUTION WIDTH 12.5 % (12.0-15.0); WHITE BLOOD COUNT 11.9 x10^3/uL (4.8-10.8)
[2024-03-18 06:10] LABS: CALCIUM 9.2 mg/dL (8.5-10.3); CREATININE 0.7 mg/dL (0.6-1.3); POTASSIUM 4.3 mmol/L (3.5-4.5)
[2024-03-18] MEDS: SPIRONOLACTONE 25 MG TABLET PO SCH (08:09)
[2024-03-18 08:21] VITALS: BP 122/84
[2024-03-18] MEDS: NIACIN 500 MG PO SCH (09:00)
--- NOTE | 2024-03-18 12:52 | Discharge Plan ---
Discharge Plan Problem Reviewed?: Yes Disposition: Home, Self Care Condition: Fair Prescriptions: carvediloL [Coreg] 6.25 mg PO BID 30 Days #120 tab Empagliflozin [Jardiance] 10 mg PO DAILY #30 tablet Furosemide [Lasix] 20 mg PO BID 30 Days #60 tablet Nicotine 7 mg Patch [Nicoderm] 1 each TOP Q24H #7 patch Nicotine 14 mg Patch [Nicoderm] 1 patch TOP DAILY #14 patch Diet: Low Sodium (with 1500 cc total fluid restriction) Activity Restrictions: Activity as Tolerated Shower Restrictions: No Driving Restrictions: Yes (no driving) Assistance Devices: Walker, Cane Instruction Topics: Furosemide tablets, Heart Failure Meds Control, Heart Failure, Heart Failure Tracking Weight, Heart Failure Being Active, Heart Fail ure Diet Changes, ED CHF Left Side Health Concerns: Unfortunately you have a long history of heart disease. You had your first 2 silent heart attack in the . You are also a smoker and you have severe emphysema of your upper lungs. For the last 3 months you have been gradually getting worse with regards to shortness of breath. At first it was just with exertion, and then it started happening at rest. And then you started having shortness of breath and he could not breathe at night when he tried to lay down. Your CPAP was not working so you started sleeping in your recliner. Your legs became more and more full of fluid and edema. You came to the emergency room with this and we treated you as congestive heart failure. You have lost about 4 pounds with me giving you Lasix in your veins. And you have urinated close to 6 L over the last 2 days. You were very short of breath just laying in bed talking to me. You have improved to the point that you are short of breath only with getting up out of bed and you can speak comfortably. I think you could stay here another day or 2 to treat your congestive heart failure but you really, really want to go home. While here we talked about the future. You already know that you want to be a DO NOT RESUSCITATE if you do have a problem where you have no heart or pulse. So we filled out a POLST form and you are taking the green POLST form home with you and we have kept a copy here. You feel that you have lived a very good life. And you would rather be at home than be in the hospital. If the time co mes you will choose to go through hospice. Because of your emphysema and congestive heart failure, you are needing oxygen. Plan of Treatment: 1. Please see Dr. Cassidy in the next 1 to 2 weeks. Let his office know that you were in the hospital and need a quicker follow-up than normal. While you are in the hospital we have identified you is losing heart function. Your ejection fraction, the amount of blood that you are left heart pumps out, is much lower than normal. Normal is about 55 to 65%. You are at 20 to 25%. So you now have a diagnosis of "systolic" heart failure. And this puts you at risk for sudden . When your heart pump is that low and its ejection fraction, you can have a malignant rhythm called ventricular tachycardia. You and Dr. Cassidy can decide if you are a candidate for an implantable defibrillator to treat that possibility. 2. A new medication for you is Jardiance. We use that in congestive heart failure and diabetes. The other medications that are new for you are: +Coreg 6.25 mg tablet, twice a day +Lasix water pill 20 mg in the morning before breakfast and 20 mg around 2 PM + the Jardiance that I mentioned before at 10 mg daily + You already take losartan which is an important congestive heart failure drug and I will not be changing that + you already take spironolactone which is another important congestive heart failure drug and I will not be changing that 3. Eat a low-salt diet. You say you already do. I also want you to restrict your fluids to 1500 cc a day. You are taking home the hospital drink container that can measure that for you. The drink container is 1000 cc. So you can drink a total of 1-1/2 containers a day of fluid. Weight yourself every day. If you find that you are not losing water weight or you are gaining weight, let Dr. Cassidy know so that he can adjust her medications immediately. 4. Continue to use your CPAP even though you do not think it works 5. You will need to take oxygen. at rest, when you are sitting and not doing anything he do not need any oxygen. But when you get up and walk around the house you need to be on 3 L of oxygen. [employer] [employer] [facility] will be delivering the supplies to your house. Care Goals: You want to remain at home. You have no intention of ever going to a [facility]. You also want to reduce the amount of time you come to the hospital. He feels that you are wanting to spend more time at home with your family and loved ones and would prefer to spend your end of times there than in the hospital. When the time comes, you are going to want to go to hospice. You can call hospice yourself and self refer. Or you can asked Dr. Wei to do it for you Assessment: patient is alert, oriented to person, place, time and situation No Smoking: If you smoke, Please STOP! Call for help. Follow-up with: Ryan Cassidy MD [Primary Care Provider] -
--- NOTE | 2024-03-18 13:09 | DISCHARGE SUMMARY ---
Discharge Summary Admit Date: 03/16/24 Discharge Date: 03/18/24 Discharging Provider: Mili Do MD Primary Care Provider: Ryan Cassidy MD Code Status: Do Not Attempt Resuscitation Condition at Discharge: Fair Discharge Disposition: 01 Home, Self Care - DIAGNOSES Discharge Diagnoses with Status of Each Condition: 1. New diagnosis of acute on chronic systolic heart failure, ejection fraction 20 to 25% 2. COPD exacerbation 3. Acute respiratory failure with hypoxemia 4. Unintentional weight loss 5. Controlled type 2 diabetes mellitus, without complication, without long-term use of insulin 6. Nicotine addiction 7. Obstructive sleep apnea on CPAP 8. Abdominal aortic aneurysm 5.4 cm 9. DO NOT RESUSCITATE status - HPI History of Present Illness: He presented to the emergency room after driving himself there. He has been having shortness of breath and cough for several weeks. about 3 months ago he felt like his CPAP was not working anymore. He has obstructive sleep apnea and uses a CPAP at night. So he started sleeping in the recliner in the living room. He felt more comfortable that way. Then 3 weeks ago he felt like the CPAP was not working at all. Started developing orthopnea, and pedal edema. Decreased appetite. Food just does not taste good and he just does not want to eat. Leg edema getting worse. It is getting to the point where he cannot lay flat. And he cannot walk across the room anymore. This shortness of breath is getting to the point where it was started to happen at rest so his daughter drove him here to the emergency room. He was afebrile with a heart rate of 47, a blood pressure of 139/89, and he was 88-89% on room air. That was at rest. If he walked he dropped to 87 on room air. While he does have a history of COPD and is a current 1 pack/day smoker, he is not on home oxygen. He does have a CPAP machine that he uses for JANNET. And occasionally he will use an albuterol inhaler. He denies any fever, chills, sore throat, phlegm production, eustachian tube dysfunction. There is quite a bit of allergens in the air and patients are presenting with congestion, cough and wheezing from allergies but he said he is never had allergies before. He denies any chest pain. But he tells me that he never had chest pain with his 2 silent MIs in the . He denies palpitations. Reviewing the chart from his primary care provider office, his weight was 163 pounds in June 2023. 164 kg in October 2023. And 160.4 pounds in December 2023. Today's weight he is 157.3 kg. The ER provider found him to be an alert and oriented elderly gentleman, no respiratory distress with clear lungs but he had 2+ pitting edema bilaterally. He does not describe JVD. His white cell count was mildly elevated at 10.8. Hemoglobin 15.1. Sodium was 128. In reviewing his primary care provider office notes he is chronically hyponatremic. Usually between 129-131. BUN and creatinine are normal. Random glucose 167. Troponin is a 41.9. AST 48, ALT 76, and BNP is 1495. A viral panel was done and no viruses are detected. Treatment in the ER consisted of Lasix 40 mg IV push once, and DuoNeb. While he had good diuresis with that, symptomatically he was still short of breath at rest, and did not want to lay down. He still has a 2+ edema. After discussing the case with the ER provider the ER provider thinks that there may be some COPD exacerbation going on, but I think there may be more CHF than COPD. Nevertheless the patient is still hypoxic, symptomatic help place him in observation status to continue to diurese him. In reviewing the medical record this patient has not had an echocardiogram in the past. However an old CT of the chest done for cancer screening in 2022 shows moderate upper lobe predominant pulmonary emphysema and mild subpleural reticular opacities involving all lobes of the bilateral hemithoraces. Findings were compatible with early pleural scarring. No fibrosis. The mediastinum was normal and there was no adenopathy. He had abdominal aortic aneurysm of 5.4 cm. - Past Medical History Cardiovascular: reports: Congestive heart failure, Hypertension, High cholesterol, Coronary artery disease, MS (2 silent MIs), Other (orthostatic syncope, AAA 5.4 cm) Respiratory: reports: COPD, Shortness of breath, Sleep apnea (since 2005), CPAP use, Other (chronic bronchitis) Neuro: reports: None Endocrine/Autoimmune: reports: Type 2 diabetes GI: reports: Colon polyps (FOBT stool, 2015 polyp removed) : reports: Incontinence, Frequency, Other (bilateral kidney cysts) HEENT: reports: Other (angular chelitis/gingival ecession severe) Psych: reports: None Musculoskeletal: reports: None Derm: reports: Eczema, 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 Lungs were clear. Vascular congestion was present. No definite focal infiltrate Echocardiogram has moderately left ventricular enlargement. Severely impaired ejection fraction with 20 to 25%. Severe global hypokinesis of LV contractility. Mild right ventricular enlargement. Right ventricular systolic function normal. No concerning cardiac valve disease noted. Percent free PSA indicated he might have neoplasm. But his total PSA was 0.399. CEA was 5.5. - HOSPITAL COURSE Hospital Course: Even though his electronic medical record stated that he had a history of congestive heart failure, the patient felt that that was not a term that apply to him in the past. He was aware that he had heart problems because of his matteo ent heart attacks, and an arrhythmia was attributed as the cause of sudden loss of consciousness with a "seizure-like" episode a few months ago. On admission physical examination he had congestive heart failure with liver engorgement, liver panel elevated, and severe pedal edema that was at 3+. BNP was elevated. I started him on Lasix and he had good diuresis and over the course of 2 to 3 days had a negative balance of at least 6 L. Weight went from 71.5 kg to 70 kg. When he was examined on admission he was short of breath just sitting in bed speaking to me. He did improve to be able to speak normally without increased respiratory effort. But when he started to move around such as going from supine to sitting, or sitting to standing he would get tachypneic. It would take about a minute or 2 to recover. Even though I felt that he could stay another day or 2 to diurese, and improve his edema and improve his oxygenation, the patient really wanted to go home. Echocardiogram confirmed that this patient has a new diagnosis of systolic heart failure. His ejection fraction is 20 to 25%. At home he was already on spironolactone, losartan. I continued those drugs in the discharge planning process and have added new medication. I am asking him to weigh himself daily. If he gains weight or does not lose any weight and stays stable to notify Dr. Wei to see if his medications need to be adjusted. To be on a low-salt diet. And to drink no more than 1500 cc of fluid a day. Still hypoxic at discharge. On room air he has normal O2 sats above 92%. But with exertion he needs 3 L nasal cannula oxygen. I have called that into [facility]. Equipment should be delivered to his home today. Not smoking really bothered him. I offered him a nicotine patch and, surprisingly, he excepted and it worked. He said he did not had any desire for cigarette. He was a nicotine 14 mg a day. He asked to go home on this. I advised him to do this for 2 weeks. Then go down to 7 mg a day. And then nothing. Do this under the care of of his primary care provider. New medications will be: Jardiance 10 mg a day. Lasix 20 mg p.o. twice daily. Coreg 6.25 mg p.o. twice daily. I would like him to resume his spironolactone and his losartan that he had on his list from admission. Advance care planning conversation was held. He stated that he wanted his code status to be a DO NOT RESUSCITATE when I asked upon his admission. He had not filled out a POLST form in the past so we filled that out together. was present. He and his also stated that they did not want to be aggressive in their treatment. He felt that he had a good life. A loving family. And had been content with the things he had accomplished. He was getting slower, more tired. He did not want to be in the hospital all the time. Although he is not ready for hospice yet, he would like to be considered for hospice when the time comes. I did explain that he may be candidate for an AICD because of his ejection fraction but he said he had to think about it and talk about it with his primary care provider. As such I discharged the patient in stable condition with a poor prognosis. Is an exceedingly pleasant white male. Elderly, looks stated age. He has some bilateral temporal wasting and appears gaunt but in weight loss he is only lost 5 or 6 pounds in the last 3 months. He is 5 feet 10 inches tall, weighs 70 kg. I anticipate that his dry weight will be closer to 67 kg. Neck is supple. He had JVD on admission and does not have any now. He still has faint bibasilar crackles but does not want to stay. He is without any respiratory distress at rest. He also has faint right lung wheezing. He uses an inhaler at home and I asked him to resume that. He is comfortable at rest. He has a regular rate and rhythm with a systolic ejection murmur. The abdomen is obese, soft, nontender, hypoactive bowel sounds. When he was admitted he had 3+ edema. He has 2+ edema now. But no venous stasis changes. No discoloration no open wounds. He is able to sit up on his own, and walk on his own as long as he uses a cane or walker for support. Greater than 30 minutes was spent coordinating discharge This document was made in part using voice recognition software. While efforts are made to proofread this document, sound alike and grammatical errors may o ccur. - ALLERGIES Allergies/Adverse Reactions: Allergies Allergy/AdvReac Type Severity Reaction Status Date / Time No Known Drug Allergies Allergy Verified 03/16/24 15:21 - MEDICATIONS Home Medications: Ambulatory Orders Medication Instructions Recorded Confirmed Acetaminophen [Acetaminophen Extra 500 mg PO DAILY 03/16/24 03/17/24 Strength] Aspirin [[place] Aspirin] 81 mg PO QPM 03/16/24 03/17/24 Atorvastatin [Lipitor] 10 mg PO QPM 03/16/24 03/17/24 Losartan Potassium 25 mg PO DAILY 03/16/24 03/17/24 Minocycline HCl 100 mg PO BID 03/16/24 03/17/24 Niacin [Niaspan] 1 tab PO DAILY 03/16/24 03/16/24 Spironolactone [Aldactone] 25 mg PO DAILY 03/16/24 03/17/24 metFORMIN [Glucophage] 500 mg PO BIDWM 03/16/24 03/17/24 Albuterol Sulf [Ventolin Hfa 1 - 2 puffs INH Q4H PRN 03/17/24 03/17/24 Inhaler] Loratadine [Claritin] 10 mg PO DAILY 03/17/24 03/17/24 Multivit-Minerals/Folic Acid 1 tab PO DAILY 03/17/24 03/17/24 [Men's Multivitamin Gummies] diphenhydrAMINE [Benadryl] 25 mg PO QPM 03/17/24 03/17/24 Empagliflozin [Jardiance] 10 mg PO DAILY #30 tablet 03/18/24 Furosemide [Lasix] 20 mg PO BID 30 Days #60 tablet 03/18/24 Nicotine 14 mg Patch [Nicoderm] 1 patch TOP DAILY #14 patch 03/18/24 Nicotine 7 mg Patch [Nicoderm] 1 each TOP Q24H #7 patch 03/18/24 carvediloL [Coreg] 6.25 mg PO BID 30 Days #120 tab 03/18/24 - LABS Result Diagrams: 03/18/24 05:50 03/18/24 05:50
[2024-03-18] MEDS ORDERED: ASPIRIN CHEW 81 MG TABLET PO SCH (21:00)
[2024-03-18] MEDS ORDERED: ATORVASTATIN 10 MG TABLET PO SCH (21:00)
== END 2024-03-18 13:50 | disposition home or self-care (01) | DRG 291 ==
LOC: ED 14:56 → MS2 17:42 → OBSVTOIN 03-17 12:34 → MS2 03-17 16:28
PROVIDERS: ADMIT Specialist; ATTEND Specialist
DX: I11.0 Hypertensive heart disease with heart failure (principal); I50.9 Heart failure, unspecified; I50.23 Acute on chronic systolic (congestive) heart failure; J81.0 Acute pulmonary edema; J96.01 Acute respiratory failure with hypoxia; J44.1 Chronic obstructive pulmonary disease with (acute) exacerbation; E11.9 Type 2 diabetes mellitus without complications; R00.0 Tachycardia, unspecified; F17.210 Nicotine dependence, cigarettes, uncomplicated; G47.33 Obstructive sleep apnea (adult) (pediatric); Z20.818 Contact with and (suspected) exposure to other bacterial communicable diseases; Z20.822 Contact with and (suspected) exposure to COVID-19; Z20.828 Contact with and (suspected) exposure to other viral communicable diseases; I71.40 Abdominal aortic aneurysm, without rupture, unspecified; E78.00 Pure hypercholesterolemia, unspecified; I25.10 Atherosclerotic heart disease of native coronary artery without angina pectoris; I25.2 Old myocardial infarction; E66.9 Obesity, unspecified; R63.4 Abnormal weight loss; Z66 Do not resuscitate; Z68.22 Body mass index [BMI] 22.0-22.9, adult; Z79.82 Long term (current) use of aspirin; Z79.84 Long term (current) use of oral hypoglycemic drugs; Z79.899 Other long term (current) drug therapy
CPT/HCPCS: 36415; 71045; 80048; 80053; 82378; 83036; 83605; 83690; 83735; 83880; 84153; 84154; 84484; 85025; 87633; 93005; 93307; 94640; 94761; 96374; 96375; 96376; 99285; A9270; G0378; J1650